=== PATIENT | female | born 1955 | race Caucasian/White ===

== ENCOUNTER 2017-05-13 10:13 | Emergency (ER) | payer MEDICARE, MEDICAID ==
[~2017-05-13] VITALS: Ht 152.4 cm; Wt 55.0 kg
[~2017-05-13 10:13] MED LIST: ALBU8.5H8 INH; ASPI-515 PO; ATARAX PO; BENZ0.5T PO; CLON-364 PO; CLON0.5T20 PO; DIPH25CA61 PO; FLUO20CA8 PO; HALO10TA PO; HYDR-3241 PO; LISI5TAB7 PO; METROPOLOL; OMEP-110 PO; POLY454P4 PO; PRAV20TA2 PO; TRAZ100T15 PO; ZIPR80CA3 PO
[2017-05-13 10:18] VITALS: BP 114/75
[2017-05-13 11:29] LABS: BASOPHILS # (AUTO) 0.02 x10^3/uL (0-0.1); BASOPHILS % (AUTO) 0 % (0-1); EOSINOPHILS # (AUTO) 0.03 x10^3/uL (0-0.4); EOSINOPHILS % (AUTO) 0 % (1-7); LYMPHOCYTES # (AUTO) 1.18 x10^3/uL (1-3.4); LYMPHOCYTES % (AUTO) 11 % (22-44); MD NO; MEAN CORPUSCULAR HEMOGLOBIN 29.5 pg (27.0-34.8); MEAN CORPUSCULAR HGB CONC 32.6 g/dL (32.4-35.8); MEAN CORPUSCULAR VOLUME 90.5 fL (80-100); MEAN PLATELET VOLUME 6.2 fL (7.4-10.4); MONOCYTES # (AUTO) 0.68 x10^3/uL (0.2-0.8); MONOCYTES % (AUTO) 6 % (2-9); NEUTROPHILS # (AUTO) 9.09 x10^3/uL (1.8-6.8); NEUTROPHILS % (AUTO) 83 % (42-75); PLATELET COUNT 303 x10^3/uL (130-400); RED BLOOD COUNT 3.86 x10^6/uL (3.82-5.3); RED CELL DISTRIBUTION WIDTH 17.9 % (9.6-15.2)
[2017-05-13 11:36] LABS: INTERNATIONAL NORMALIZED RATIO 1.06 (0.93-1.1)
[2017-05-13 11:41] LABS: ALANINE AMINOTRANSFERASE 34 U/L (12-78); ALBUMIN 1.8 g/dL (3.4-5.0); ANION GAP 9 mmol/L (5-15); CALCIUM 7.4 mg/dL (8.5-10.1); CHLORIDE 105 mmol/L (98-107); CREATININE 0.73 mg/dL (0.55-1.02)
[2017-05-13 11:43] LABS: ALKALINE PHOSPHATASE 147 U/L (45-117); BILIRUBIN,TOTAL 0.5 mg/dL (0.2-1.0); TOTAL PROTEIN 4.6 g/dL (6.4-8.2)
== END 2017-05-13 14:03 | disposition home or self-care (01) ==
LOC: ED 11:27
DX: R55 Syncope and collapse (principal)
CPT/HCPCS: 36415; 70450; 71045; 80053; 85025; 85610; 85730; 93005; 99285

== ENCOUNTER 2017-05-16 08:11 | Inpatient (IN) | payer MEDICARE, MEDICAID ==
[~2017-05-16] VITALS: Ht 152.4 cm; Wt 61.7 kg
[2017-05-16 08:54] LABS: BASOPHILS # (AUTO) 0.08 x10^3/uL (0-0.1); BASOPHILS % (AUTO) 1 % (0-1); EOSINOPHILS # (AUTO) 0.08 x10^3/uL (0-0.4); EOSINOPHILS % (AUTO) 1 % (1-7); LYMPHOCYTES # (AUTO) 1.34 x10^3/uL (1-3.4); LYMPHOCYTES % (AUTO) 13 % (22-44); MD NO; MEAN CORPUSCULAR HEMOGLOBIN 29.7 pg (27.0-34.8); MEAN CORPUSCULAR HGB CONC 33.2 g/dL (32.4-35.8); MEAN CORPUSCULAR VOLUME 89.5 fL (80-100); MEAN PLATELET VOLUME 6.4 fL (7.4-10.4); MONOCYTES # (AUTO) 0.68 x10^3/uL (0.2-0.8); MONOCYTES % (AUTO) 7 % (2-9); NEUTROPHILS # (AUTO) 8.38 x10^3/uL (1.8-6.8); NEUTROPHILS % (AUTO) 79 % (42-75); PLATELET COUNT 273 x10^3/uL (130-400); RED BLOOD COUNT 3.98 x10^6/uL (3.82-5.3); RED CELL DISTRIBUTION WIDTH 18.5 % (9.6-15.2)
[2017-05-16 09:03] LABS: ALANINE AMINOTRANSFERASE 38 U/L (12-78); ALBUMIN 1.9 g/dL (3.4-5.0); ANION GAP 7 mmol/L (5-15); CALCIUM 7.5 mg/dL (8.5-10.1); CHLORIDE 107 mmol/L (98-107); CREATININE 0.55 mg/dL (0.55-1.02)
[2017-05-16 09:08] LABS: ALKALINE PHOSPHATASE 154 U/L (45-117); BILIRUBIN,TOTAL 0.8 mg/dL (0.2-1.0); TOTAL PROTEIN 4.8 g/dL (6.4-8.2); TROPONIN I < 0.015 ng/mL (0.000-0.045)
[2017-05-16] MEDS ORDERED: SODIUM CHLORIDE 0.9% 1,000ML IVBOLUS ONE (10:00)
[2017-05-16] MEDS ORDERED: LACT10SO28 PO (10:13)
[2017-05-16] MEDS ORDERED: POLY17PO5 PO (10:13)
[2017-05-16] MEDS ORDERED: LOSA50TA6 PO (10:13)
[2017-05-16] MEDS ORDERED: DOCU-131 PO (10:13)
[2017-05-16] MEDS ORDERED: LEVO50TA5 PO (10:13)
[2017-05-16] MEDS ORDERED: MELO15TA24 PO (10:13)
[2017-05-16] MEDS ORDERED: ASPI-496 PO (10:13)
[2017-05-16] MEDS ORDERED: FERR324T5 PO (10:13)
[2017-05-16] MEDS ORDERED: HYDR25CA PO (10:13)
[2017-05-16 11:21] LABS: MICROSCOPIC AUTO
[2017-05-16 11:23] LABS: CULTURE INDICATED? YES
[2017-05-16] MEDS ORDERED: CEFTRIAXONE PMX 1GM/50ML 50 ML ONE (11:51)
[2017-05-16] MEDS ORDERED: ACETAMINOPHEN 500 MG TABLET PO ONE (12:00)
[2017-05-16] MEDS ORDERED: CEFTRIAXONE PMX 1GM/50ML 50 ML IV ONE (12:00)
[2017-05-16 12:15] VITALS: BP 131/54
[2017-05-16] MEDS ORDERED: hydrALAzine 20 MG/ML, 1ML IVPush PRN (13:00)
[2017-05-16] MEDS ORDERED: ONDANSETRON 2MG/ML, 2ML IVPush PRN (13:00)
[2017-05-16] MEDS ORDERED: DOCUSATE 100 MG CAPSULE PO PRN (13:00)
[2017-05-16] MEDS ORDERED: ACETAMINOPHEN 325 MG TABLET PO PRN (13:00)
[2017-05-16] MEDS: ALBUTEROL SULFATE 2.5 MG/3 ML NPPB SCH ×3 (13:00→21:00)
[2017-05-16] MEDS ORDERED: TRAZODONE 50MG TABLET PO SCH (13:00)
[2017-05-16] MEDS: FERROUS GLUCONATE 324 MG TABLET PO SCH (13:14)
[2017-05-16] MEDS: OMEPRAZOLE 20 MG CAPSULE.DR PO SCH (13:14)
[2017-05-16] MEDS: SODIUM CHLORIDE 0.9% 1,000 ML IV SCH ×2 (13:14→23:25)
[2017-05-16] MEDS: DOCUSATE 100 MG CAPSULE PO SCH (13:14)
[2017-05-16] MEDS: LEVOTHYROXINE 50 MCG TABLET PO SCH (13:14)
[2017-05-16] MEDS: ASPIRIN 81 MG TABLET EC PO SCH (13:14)
[2017-05-16] MEDS: ENOXAPARIN 40 MG/0.4 ML SQ SCH (13:41)
[2017-05-16 14:00] VITALS: BP 134/64
[2017-05-16 14:01] VITALS: BP 130/67
[2017-05-16 14:03] VITALS: BP 126/49
[2017-05-16 14:48] LABS: TROPONIN I < 0.015 ng/mL (0.000-0.045)
[2017-05-16 15:09] LABS: AMPHETAMINE SCREEN, URINE Negative (Negative); BARBITURATE SCREEN, URINE Negative (Negative); BENZODIAZEPINE SCREEN, URINE Negative (Negative); CANNABINOID SCREEN, URINE Negative (Negative); COCAINE SCREEN, URINE Negative (Negative); METHADONE SCREEN, URINE Negative (Negative); OPIATE SCREEN, URINE Positive (Negative)
[2017-05-16] MEDS: OXYcodone IR 5MG TABLET PO PRN ×2 (17:56→22:14)
[2017-05-16 20:59] VITALS: BP 128/65
[2017-05-16] MEDS: ZIPRASIDONE 20MG CAPSULE PO SCH (21:09)
[2017-05-16 21:37] LABS: TROPONIN I < 0.015 ng/mL (0.000-0.045)
[2017-05-17 00:46] VITALS: BP 138/63
[2017-05-17] MEDS: ALBUTEROL SULFATE 2.5 MG/3 ML NPPB SCH ×6 (02:00→22:15)
[2017-05-17] MEDS: OXYcodone IR 5MG TABLET PO PRN ×5 (02:12→21:23)
[2017-05-17] MEDS: LEVOTHYROXINE 50 MCG TABLET PO SCH (05:32)
[2017-05-17 05:53] LABS: CHLORIDE 109 mmol/L (98-107)
[2017-05-17 05:58] LABS: BASOPHILS # (AUTO) 0.16 x10^3/uL (0-0.1); BASOPHILS % (AUTO) 2 % (0-1); EOSINOPHILS # (AUTO) 0.18 x10^3/uL (0-0.4); EOSINOPHILS % (AUTO) 2 % (1-7); LYMPHOCYTES % (AUTO) 30 % (22-44); MD NO; MEAN CORPUSCULAR HEMOGLOBIN 29.9 pg (27.0-34.8); MEAN CORPUSCULAR VOLUME 90.7 fL (80-100); MEAN PLATELET VOLUME 6.4 fL (7.4-10.4); MONOCYTES # (AUTO) 0.93 x10^3/uL (0.2-0.8); MONOCYTES % (AUTO) 12 % (2-9); NEUTROPHILS # (AUTO) 4.09 x10^3/uL (1.8-6.8); NEUTROPHILS % (AUTO) 54 % (42-75); PLATELET COUNT 250 x10^3/uL (130-400); RED BLOOD COUNT 3.79 x10^6/uL (3.82-5.3); RED CELL DISTRIBUTION WIDTH 18.7 % (9.6-15.2)
[2017-05-17 06:04] LABS: ANION GAP 9 mmol/L (5-15); CALCIUM 7.5 mg/dL (8.5-10.1); CREATININE 0.49 mg/dL (0.55-1.02)
[2017-05-17 07:10] VITALS: BP 140/59
[2017-05-17 08:30] VITALS: BP 129/60
[2017-05-17] MEDS: ASPIRIN 81 MG TABLET EC PO SCH (09:36)
[2017-05-17] MEDS: ZIPRASIDONE 20MG CAPSULE PO SCH ×2 (09:36→22:47)
[2017-05-17] MEDS: FERROUS GLUCONATE 324 MG TABLET PO SCH (09:36)
[2017-05-17] MEDS: DOCUSATE 100 MG CAPSULE PO SCH (09:36)
[2017-05-17] MEDS: CEFTRIAXONE PMX 1GM/50ML 50 ML IV SCH (09:37)
[2017-05-17] MEDS: OMEPRAZOLE 20 MG CAPSULE.DR PO SCH (09:38)
[2017-05-17] MEDS: SODIUM CHLORIDE 0.9% 1,000 ML IV SCH ×2 (11:35→21:32)
[2017-05-17] MEDS: ENOXAPARIN 40 MG/0.4 ML SQ SCH (13:34)
[2017-05-17 14:30] VITALS: BP 145/78
[2017-05-17 18:43] VITALS: BP 123/76
[2017-05-17] MEDS: TRAZODONE 50MG TABLET PO SCH (22:44)
[2017-05-18 01:31] VITALS: BP_SYST 160; BP_SYST 171; BP_DIAS 71; BP_DIAS 91
[2017-05-18] MEDS: OXYcodone IR 5MG TABLET PO PRN ×4 (02:27→21:49)
[2017-05-18] MEDS: ALBUTEROL SULFATE 2.5 MG/3 ML NPPB SCH ×4 (03:00→19:54)
[2017-05-18 04:31] LABS: BASOPHILS # (AUTO) 0.02 x10^3/uL (0-0.1); BASOPHILS % (AUTO) 0 % (0-1); EOSINOPHILS # (AUTO) 0.02 x10^3/uL (0-0.4); EOSINOPHILS % (AUTO) 0 % (1-7); LYMPHOCYTES # (AUTO) 1.07 x10^3/uL (1-3.4); LYMPHOCYTES % (AUTO) 14 % (22-44); MD NO; MEAN CORPUSCULAR HEMOGLOBIN 29.8 pg (27.0-34.8); MEAN CORPUSCULAR VOLUME 90.3 fL (80-100); MEAN PLATELET VOLUME 6.4 fL (7.4-10.4); MONOCYTES % (AUTO) 8 % (2-9); NEUTROPHILS # (AUTO) 6.14 x10^3/uL (1.8-6.8); NEUTROPHILS % (AUTO) 78 % (42-75); PLATELET COUNT 238 x10^3/uL (130-400); RED BLOOD COUNT 3.58 x10^6/uL (3.82-5.3)
[2017-05-18 04:41] LABS: ANION GAP 8 mmol/L (5-15); CALCIUM 7.3 mg/dL (8.5-10.1); CHLORIDE 109 mmol/L (98-107)
[2017-05-18 04:44] LABS: CREATINE KINASE, TOTAL 42 U/L (26-192); CREATININE 0.38 mg/dL (0.55-1.02)
[2017-05-18] MEDS: LEVOTHYROXINE 50 MCG TABLET PO SCH (05:52)
[2017-05-18 07:24] VITALS: BP 135/68
[2017-05-18] MEDS: ZIPRASIDONE 20MG CAPSULE PO SCH ×3 (08:47→21:49)
[2017-05-18] MEDS: SODIUM CHLORIDE 0.9% 1,000 ML IV SCH (08:47)
[2017-05-18] MEDS: FERROUS GLUCONATE 324 MG TABLET PO SCH (08:47)
[2017-05-18] MEDS: OMEPRAZOLE 20 MG CAPSULE.DR PO SCH (08:47)
[2017-05-18] MEDS: CEFTRIAXONE PMX 1GM/50ML 50 ML IV SCH (08:47)
[2017-05-18] MEDS: ASPIRIN 81 MG TABLET EC PO SCH (08:48)
[2017-05-18] MEDS: DOCUSATE 100 MG CAPSULE PO SCH (08:48)
[2017-05-18] MEDS ORDERED: MAGNESIUM SULFATE PMX 2GM/50ML 50 ML IV ONE (10:00)
[2017-05-18] MEDS: ENOXAPARIN 40 MG/0.4 ML SQ SCH (13:13)
[2017-05-18] MEDS ORDERED: ALBUTEROL SULFATE 2.5 MG/3 ML ONE (13:44)
[2017-05-18 14:30] VITALS: BP 103/58
[2017-05-18] MEDS ORDERED: MAGNESIUM CITRATE 300ML ORAL SOL PO ONE (15:00)
[2017-05-18] MEDS ORDERED: MAGNESIUM CITRATE 300ML ORAL SOL PO PRN (16:30)
[2017-05-18] MEDS: POLYETHYLENE GLYCOL 17 GM PACKET PO PRN ×2 (17:07→21:49)
[2017-05-18 20:58] VITALS: BP 148/84
[2017-05-18] MEDS: TRAZODONE 50MG TABLET PO SCH (21:49)
[2017-05-19] MEDS: OXYcodone IR 5MG TABLET PO PRN ×5 (03:46→23:04)
[2017-05-19 03:48] VITALS: BP 134/77
[2017-05-19 04:52] LABS: BASOPHILS # (AUTO) 0.04 x10^3/uL (0-0.1); BASOPHILS % (AUTO) 1 % (0-1); EOSINOPHILS # (AUTO) 0.12 x10^3/uL (0-0.4); EOSINOPHILS % (AUTO) 2 % (1-7); LYMPHOCYTES # (AUTO) 1.65 x10^3/uL (1-3.4); LYMPHOCYTES % (AUTO) 25 % (22-44); MD NO; MEAN CORPUSCULAR HGB CONC 32.9 g/dL (32.4-35.8); MEAN PLATELET VOLUME 6.2 fL (7.4-10.4); MONOCYTES # (AUTO) 0.81 x10^3/uL (0.2-0.8); MONOCYTES % (AUTO) 12 % (2-9); NEUTROPHILS # (AUTO) 3.88 x10^3/uL (1.8-6.8); NEUTROPHILS % (AUTO) 60 % (42-75); PLATELET COUNT 226 x10^3/uL (130-400); RED BLOOD COUNT 3.19 x10^6/uL (3.82-5.3); RED CELL DISTRIBUTION WIDTH 18.7 % (9.6-15.2)
[2017-05-19 05:00] LABS: ALBUMIN 1.5 g/dL (3.4-5.0); ANION GAP 8 mmol/L (5-15); CALCIUM 7.2 mg/dL (8.5-10.1); CHLORIDE 109 mmol/L (98-107)
[2017-05-19 05:04] LABS: CREATININE 0.31 mg/dL (0.55-1.02); FREE T4 (FREE THYROXINE) 0.88 ng/dL (0.76-1.46)
[2017-05-19] MEDS: LEVOTHYROXINE 50 MCG TABLET PO SCH (05:27)
[2017-05-19 07:19] VITALS: BP 113/70
[2017-05-19] MEDS: SODIUM CHLORIDE 0.9% 1,000 ML IV SCH (08:07)
[2017-05-19] MEDS: FERROUS GLUCONATE 324 MG TABLET PO SCH (09:44)
[2017-05-19] MEDS: CEFTRIAXONE PMX 1GM/50ML 50 ML IV SCH (09:44)
[2017-05-19] MEDS: ASPIRIN 81 MG TABLET EC PO SCH (09:44)
[2017-05-19] MEDS: OMEPRAZOLE 20 MG CAPSULE.DR PO SCH (09:44)
[2017-05-19] MEDS: ZIPRASIDONE 20MG CAPSULE PO SCH ×2 (09:44→21:48)
[2017-05-19] MEDS: DOCUSATE 100 MG CAPSULE PO SCH (09:44)
[2017-05-19] MEDS: ALBUTEROL SULFATE 2.5 MG/3 ML NPPB SCH (10:23)
[2017-05-19] MEDS: ENOXAPARIN 40 MG/0.4 ML SQ SCH (12:20)
[2017-05-19 13:13] VITALS: BP 110/63
[2017-05-19] MEDS: DIPHENHYDRAMINE 25 MG CAPSULE PO PRN ×2 (14:55→21:47)
[2017-05-19] MEDS ORDERED: MAGNESIUM SULFATE PMX 2GM/50ML 50 ML IV ONE (16:00)
[2017-05-19] MEDS ORDERED: LIDOCAINE GEL 2%, 5ML TP ONE (16:00)
[2017-05-19 19:11] VITALS: BP 129/70
[2017-05-19] MEDS ORDERED: maalox/diphenh/lido/sucralfate 5 ML PO PRN (20:30)
[2017-05-19] MEDS: TRAZODONE 50MG TABLET PO SCH (22:06)
[2017-05-20] MEDS: SODIUM CHLORIDE 0.9% 1,000 ML IV SCH
[2017-05-20 01:18] VITALS: BP 128/68
[2017-05-20] MEDS: OXYcodone IR 5MG TABLET PO PRN ×3 (04:29→13:55)
[2017-05-20] MEDS: LEVOTHYROXINE 50 MCG TABLET PO SCH (05:29)
[2017-05-20] MEDS: DIPHENHYDRAMINE 25 MG CAPSULE PO PRN (06:24)
[2017-05-20 07:36] VITALS: BP 114/58
[2017-05-20] MEDS ORDERED: ZIPR20CA2 PO (07:56)
[2017-05-20 08:12] LABS: BASOPHILS # (AUTO) 0.04 x10^3/uL (0-0.1); BASOPHILS % (AUTO) 1 % (0-1); EOSINOPHILS # (AUTO) 0.13 x10^3/uL (0-0.4); EOSINOPHILS % (AUTO) 2 % (1-7); LYMPHOCYTES # (AUTO) 1.38 x10^3/uL (1-3.4); LYMPHOCYTES % (AUTO) 20 % (22-44); MD NO; MEAN CORPUSCULAR HEMOGLOBIN 30.2 pg (27.0-34.8); MEAN CORPUSCULAR HGB CONC 33.1 g/dL (32.4-35.8); MEAN CORPUSCULAR VOLUME 91.1 fL (80-100); MEAN PLATELET VOLUME 6.2 fL (7.4-10.4); MONOCYTES # (AUTO) 0.72 x10^3/uL (0.2-0.8); MONOCYTES % (AUTO) 10 % (2-9); NEUTROPHILS # (AUTO) 4.67 x10^3/uL (1.8-6.8); NEUTROPHILS % (AUTO) 67 % (42-75); PLATELET COUNT 245 x10^3/uL (130-400); RED BLOOD COUNT 3.25 x10^6/uL (3.82-5.3); RED CELL DISTRIBUTION WIDTH 19.4 % (9.6-15.2)
[2017-05-20 08:26] LABS: ALBUMIN 1.5 g/dL (3.4-5.0); ANION GAP 6 mmol/L (5-15); CALCIUM 7.2 mg/dL (8.5-10.1); CHLORIDE 106 mmol/L (98-107)
[2017-05-20 08:28] LABS: CREATININE 0.43 mg/dL (0.55-1.02)
[2017-05-20] MEDS: DOCUSATE 100 MG CAPSULE PO SCH (09:00)
[2017-05-20] MEDS ORDERED: ALBUTEROL SULFATE 2.5 MG/3 ML NPPB PRN (09:00)
[2017-05-20] MEDS ORDERED: OMNIPAQUE 350 MG/ML, 100ML BOTTLE ONE (09:54)
[2017-05-20] MEDS: ZIPRASIDONE 20MG CAPSULE PO SCH (09:55)
[2017-05-20] MEDS: FERROUS GLUCONATE 324 MG TABLET PO SCH (09:55)
[2017-05-20] MEDS: CEFTRIAXONE PMX 1GM/50ML 50 ML IV SCH (09:55)
[2017-05-20] MEDS: ASPIRIN 81 MG TABLET EC PO SCH (09:55)
[2017-05-20] MEDS: OMEPRAZOLE 20 MG CAPSULE.DR PO SCH (09:55)
[2017-05-20] MEDS ORDERED: DIPHENHYDRAMINE 25 MG CAPSULE PO PRN (12:30)
[2017-05-20 12:54] VITALS: BP 132/70
[2017-05-20] MEDS: ENOXAPARIN 40 MG/0.4 ML SQ SCH (13:00)
[2017-05-20] MEDS ORDERED: HYDR-3241 PO (13:43)
== END 2017-05-20 14:41 | DRG 73 ==
LOC: ED 08:24 → EDIP 11:11 → 4WST 12:08
PROVIDERS: ADMIT Internal Medicine; ATTEND Internal Medicine
DX: G90.8 Other disorders of autonomic nervous system (principal); E43 Unspecified severe protein-calorie malnutrition; E77.8 Other disorders of glycoprotein metabolism; F25.9 Schizoaffective disorder, unspecified; D64.9 Anemia, unspecified; E11.9 Type 2 diabetes mellitus without complications; R55 Syncope and collapse; W19.XXXA Unspecified fall, initial encounter; M54.5 Low back pain; N30.91 Cystitis, unspecified with hematuria; E03.9 Hypothyroidism, unspecified; G89.4 Chronic pain syndrome; F45.8 Other somatoform disorders; I95.1 Orthostatic hypotension; J45.909 Unspecified asthma, uncomplicated; K21.9 Gastro-esophageal reflux disease without esophagitis; Z87.891 Personal history of nicotine dependence; Z90.49 Acquired absence of other specified parts of digestive tract; Z95.0 Presence of cardiac pacemaker; Z98.51 Tubal ligation status; Z68.26 Body mass index [BMI] 26.0-26.9, adult; Y93.89 Activity, other specified; Y92.89 Other specified places as the place of occurrence of the external cause; Y99.8 Other external cause status
CPT/HCPCS: 36415; 70450; 71045; 71275; 80048; 80053; 80307; 81001; 82040; 82550; 83735; 84100; 84439; 84443; 84484; 85025; 85379; 87077; 87086; 87186; 93005; 93306; 94640; 99285; J0696; J1650; J2405; J7613; Q9967; J3475; J7030; Q0163

== ENCOUNTER 2017-12-02 17:20 | Inpatient (IN) | payer MEDICARE, MEDICAID ==
[~2017-12-02] VITALS: Ht 152.4 cm; Wt 57.8 kg
[~2017-12-02 17:20] MED LIST changes: +ASPI-496 PO; -BENZ0.5T PO; +BENZ0.5T35 PO; -CLON-364 PO; +CLON0.5T11 PO; +DEXAMETHASONE 4 MG/ML, 1ML ONE; +DOCU-131 PO; +FERR324T5 PO; +GLYCOPYRROLATE 0.2MG/1ML, 5ML ONE; +HYDR25CA PO; +LABETALOL 5MG/ML, 20ML ONE; +LACT10SO28 PO; +LEVO50TA5 PO; +LOSA50TA6 PO; +MELO15TA24 PO; +NEOSTIGMINE 1 MG/ML, 10ML ONE; +ONDANSETRON 2MG/ML, 2ML ONE; +POLY17PO5 PO; +PROPOFOL 10 MG/ML, 20ML ONE; +ROCURONIUM 10MG/ML,5ML ONE; +SUCCINYLCHOLINE 20 MG/ML, 10ML ONE; +TRAZ-137 PO; -TRAZ100T15 PO; +ZIPR20CA2 PO
[2017-12-02] MEDS ORDERED: METOCLOPRAMIDE 5 MG/ML, 2ML IVPush ONE (18:00)
[2017-12-02] MEDS ORDERED: MAALOX/HYOSCYAMINE/LIDOCAINE 45 ML BTL PO ONE (18:00)
[2017-12-02 18:05] LABS: MEAN CORPUSCULAR HGB CONC 33.3 g/dL (32.4-35.8); MEAN CORPUSCULAR VOLUME 93.1 fL (80-100); MEAN PLATELET VOLUME 6.4 fL (7.4-10.4); PLATELET COUNT 276 x10^3/uL (130-400); RED BLOOD COUNT 5.15 x10^6/uL (3.82-5.3); RED CELL DISTRIBUTION WIDTH 12.6 % (9.6-15.2)
[2017-12-02] MEDS ORDERED: METOCLOPRAMIDE 5 MG/ML, 2ML ONE (18:16)
[2017-12-02] MEDS ORDERED: MAALOX/HYOSCYAMINE/LIDOCAINE 45 ML BTL ONE (18:16)
[2017-12-02 18:17] LABS: ALANINE AMINOTRANSFERASE 19 U/L (12-78); ALBUMIN 3.8 g/dL (3.4-5.0); ANION GAP 7 mmol/L (5-15); CALCIUM 8.6 mg/dL (8.5-10.1); CHLORIDE 107 mmol/L (98-107); CREATININE 0.64 mg/dL (0.55-1.02)
[2017-12-02 18:19] LABS: ALKALINE PHOSPHATASE 136 U/L (45-117); BILIRUBIN,TOTAL 0.2 mg/dL (0.2-1.0)
[2017-12-02 18:20] LABS: MD YES
[2017-12-02 18:24] LABS: <PLATELET ESTIMATE> ADEQUATE; <PLT MORPHOLOGY> NORMAL PLT MORPH; <RBC MORPHOLOGY> NORMAL; BAND#(MANUAL) 0.78 x10^3/uL; BANDS%(MANUAL) 4 % (0-7); LYMPH#(MANUAL) 0.78 x10^3/uL (1-3.4); LYMPHS% (MANUAL) 4 % (22-44); MONOS#(MANUAL) 1.56 x10^3/uL (0.3-2.7); MONOS% (MANUAL) 8 % (2-9); SEG#(MANUAL) 16.38 x10^3/uL (1.8-6.8); SEGS% (MANUAL) 84 % (42-75)
[2017-12-02 18:38] LABS: MICROSCOPIC NOT IND
[2017-12-02 18:39] LABS: CULTURE INDICATED? NO
[2017-12-02 19:24] LABS: TROPONIN I < 0.015 ng/mL (0.000-0.045)
[2017-12-02] MEDS ORDERED: MORPHINE SULFATE 4 MG/ML, 1ML ONE (19:54)
[2017-12-02] MEDS ORDERED: MORPHINE SULFATE 4 MG/ML, 1ML IVPush ONE (20:00)
[2017-12-02] MEDS ORDERED: OMNIPAQUE 350 MG/ML, 100ML BOTTLE ONE (20:54)
[2017-12-02] MEDS ORDERED: METH500T7 PO (21:30)
[2017-12-02] MEDS ORDERED: GABA300C10 PO (21:30)
[2017-12-02] MEDS ORDERED: BUSP10TA PO (21:30)
[2017-12-02] MEDS ORDERED: HYDR50TA13 PO (21:30)
[2017-12-02] MEDS ORDERED: AMLO5TAB2 PO (21:30)
[2017-12-02] MEDS ORDERED: ONDA4TAB7 PO (21:30)
[2017-12-02] MEDS ORDERED: MELO15TA24 PO (21:30)
[2017-12-02] MEDS ORDERED: PIPERACILLIN/TAZO/PMX 3.375GM 50 ML ONE (22:16)
[2017-12-02] MEDS ORDERED: ONDANSETRON ODT 4 MG PO PRN (22:30)
[2017-12-02] MEDS ORDERED: morphine SULFATE 10 MG/ML, 1ML IVPush PRN (22:30)
[2017-12-02] MEDS ORDERED: PIPERACILLIN/TAZO/PMX 3.375GM 50 ML IV ONE (22:30)
[2017-12-02] MEDS ORDERED: PIPERACILLIN/TAZO/PMX 3.375GM 50 ML IV SCH (22:30)
[2017-12-02] MEDS ORDERED: PROMETHAZINE 25 MG/ML, 1ML IM PRN (22:30)
[2017-12-02] MEDS ORDERED: ONDANSETRON 2MG/ML, 2ML IVPush PRN (22:30)
[2017-12-02] MEDS ORDERED: TEMPLATE NON-FORMULARY MED. (Albuterol Sulfate (Proair Hfa) 90 MCG) INH SCH (22:30)
[2017-12-02] MEDS ORDERED: BISACODYL 10 MG SUPP PR PRN (22:30)
[2017-12-02] MEDS ORDERED: FENTANYL PF 250 MCG/5ML ONE ×2 (22:47→23:22)
[2017-12-02] MEDS ORDERED: MIDAZOLAM 1 MG/ML, 2ML ONE (22:47)
[2017-12-02] MEDS ORDERED: OXYcodone 5 MG/5 ML ORAL.SOL UDC PO PRN (23:00)
[2017-12-02] MEDS ORDERED: hydrALAzine 20 MG/ML, 1ML IV PRN (23:00)
[2017-12-02] MEDS ORDERED: PROMETHAZINE 25 MG/ML, 1ML IV PRN (23:00)
[2017-12-02] MEDS ORDERED: MORPHINE SULFATE 4 MG/ML, 1ML IVPush PRN (23:00)
[2017-12-02] MEDS ORDERED: ONDANSETRON ODT 8 MG PO PRN (23:00)
[2017-12-02] MEDS ORDERED: MEPERIDINE/PF 25MG/0.5ML IVPush PRN (23:00)
[2017-12-02] MEDS ORDERED: ONDANSETRON 2MG/ML, 2ML IV PRN (23:00)
[2017-12-02] MEDS ORDERED: ACETAMINOPHEN 325 MG TABLET PO PRN (23:00)
[2017-12-02] MEDS ORDERED: PROMETHAZINE 12.5 MG SUPP PR PRN (23:00)
[2017-12-03] MEDS ORDERED: OXYcodone 5 MG/5 ML ORAL.SOL UDC ONE (00:15)
[2017-12-03] MEDS ORDERED: FENTANYL PF 100 MCG/2ML ONE (00:15)
[2017-12-03] MEDS ORDERED: ONDANSETRON 2MG/ML, 2ML ONE (00:15)
[2017-12-03] MEDS ORDERED: HYDROmorphone 2 MG/ML, 1ML ONE (00:16)
[2017-12-03] MEDS ORDERED: ONDANSETRON 2MG/ML, 2ML IVPush PRN (00:30)
[2017-12-03] MEDS ORDERED: ACETAMINOPHEN 650 MG SUPP PR PRN (00:30)
[2017-12-03] MEDS ORDERED: LORazepam 2 MG/ML, 1ML IV PRN (00:30)
[2017-12-03] MEDS ORDERED: hydrALAzine 20 MG/ML, 1ML IV PRN (00:30)
[2017-12-03] MEDS: FENTANYL PF 100 MCG/2ML IV PRN ×2 (00:51→01:10)
[2017-12-03] MEDS: HYDROmorphone 1 MG/ML, 1ML IV PRN ×2 (01:00→01:27)
[2017-12-03] MEDS ORDERED: FLUCONAZOLE 400 MG/200 ML 200 ML IV SCH (01:00)
[2017-12-03] MEDS ORDERED: LABETALOL 5MG/ML, 20ML ONE (01:33)
[2017-12-03] MEDS: LABETALOL 5MG/ML, 20ML IV PRN ×2 (01:35→01:50)
[2017-12-03 02:12] VITALS: BP 165/66
[2017-12-03] MEDS: LACTATED RINGERS 1,000 ML IV SCH ×2 (02:26→04:20)
[2017-12-03] MEDS: POTASSIUM CHLORIDE 20 MEQ in D5%-0.45% NACL 1,000 ML IV SCH ×3 (02:27→23:13)
[2017-12-03] MEDS: PIPERACILLIN/TAZO/PMX 3.375GM 50 ML IV SCH ×3 (02:28→17:48)
[2017-12-03] MEDS: ENOXAPARIN 40 MG/0.4 ML SQ SCH (02:50)
[2017-12-03 03:58] VITALS: BP 144/62
[2017-12-03] MEDS: MORPHINE SULFATE 4 MG/ML, 1ML IVPush PRN ×8 (04:08→22:30)
[2017-12-03] MEDS ORDERED: ALBUTEROL SULFATE 2.5 MG/3 ML ONE (04:14)
[2017-12-03 04:37] LABS: MEAN CORPUSCULAR HEMOGLOBIN 30.5 pg (27.0-34.8); MEAN CORPUSCULAR HGB CONC 33.5 g/dL (32.4-35.8); MEAN CORPUSCULAR VOLUME 91.1 fL (80-100); MEAN PLATELET VOLUME 6.5 fL (7.4-10.4); PLATELET COUNT 261 x10^3/uL (130-400); RED BLOOD COUNT 4.86 x10^6/uL (3.82-5.3); RED CELL DISTRIBUTION WIDTH 12.7 % (9.6-15.2)
[2017-12-03 04:47] LABS: ALANINE AMINOTRANSFERASE 150 U/L (12-78); ALBUMIN 3.2 g/dL (3.4-5.0); ANION GAP 7 mmol/L (5-15); CALCIUM 8.3 mg/dL (8.5-10.1); CHLORIDE 106 mmol/L (98-107); CREATININE 0.59 mg/dL (0.55-1.02)
[2017-12-03 04:50] LABS: ALKALINE PHOSPHATASE 198 U/L (45-117); BILIRUBIN,TOTAL 0.5 mg/dL (0.2-1.0); TOTAL PROTEIN 6.8 g/dL (6.4-8.2)
[2017-12-03] MEDS ORDERED: ALBUTEROL SULFATE 2.5 MG/3 ML NPPB PRN (05:00)
[2017-12-03 05:44] LABS: MD YES
[2017-12-03 05:46] LABS: <PLATELET ESTIMATE> ADEQUATE; <PLT MORPHOLOGY> NORMAL PLT MORPH; <RBC MORPHOLOGY> NORMAL; LYMPH#(MANUAL) 0.51 x10^3/uL (1-3.4); LYMPHS% (MANUAL) 2 % (22-44); SEG#(MANUAL) 24.99 x10^3/uL (1.8-6.8); SEGS% (MANUAL) 98 % (42-75)
[2017-12-03] MEDS ORDERED: MAGNESIUM SULFATE PMX 2GM/50ML 50 ML IV ONE (08:00)
[2017-12-03] MEDS: PANTOPRAZOLE 40 MG IV IVPush SCH (08:00)
[2017-12-03] MEDS: MICAFUNGIN 100 MG in SODIUM CHLORIDE 0.9% 100 ML IV SCH (10:53)
[2017-12-03 14:00] VITALS: BP 130/54
[2017-12-03 17:54] VITALS: BP 148/78
[2017-12-03 19:37] VITALS: BP 145/82
[2017-12-04 01:02] VITALS: BP 158/82
[2017-12-04] MEDS: PIPERACILLIN/TAZO/PMX 3.375GM 50 ML IV SCH ×3 (01:31→17:44)
[2017-12-04] MEDS: ENOXAPARIN 40 MG/0.4 ML SQ SCH (01:31)
[2017-12-04] MEDS: MORPHINE SULFATE 4 MG/ML, 1ML IVPush PRN ×8 (01:31→22:30)
[2017-12-04 05:45] LABS: BASOPHILS # (AUTO) 0.02 x10^3/uL (0-0.1); BASOPHILS % (AUTO) 0 % (0-1); EOSINOPHILS % (AUTO) 0 % (1-7); LYMPHOCYTES # (AUTO) 1.13 x10^3/uL (1-3.4); LYMPHOCYTES % (AUTO) 7 % (22-44); MD NO; MEAN CORPUSCULAR HEMOGLOBIN 30.7 pg (27.0-34.8); MEAN CORPUSCULAR HGB CONC 33.6 g/dL (32.4-35.8); MEAN CORPUSCULAR VOLUME 91.3 fL (80-100); MEAN PLATELET VOLUME 6.5 fL (7.4-10.4); MONOCYTES # (AUTO) 1.31 x10^3/uL (0.2-0.8); MONOCYTES % (AUTO) 8 % (2-9); NEUTROPHILS # (AUTO) 14.89 x10^3/uL (1.8-6.8); NEUTROPHILS % (AUTO) 86 % (42-75); PLATELET COUNT 248 x10^3/uL (130-400); RED BLOOD COUNT 4.72 x10^6/uL (3.82-5.3); RED CELL DISTRIBUTION WIDTH 12.7 % (9.6-15.2)
[2017-12-04 05:47] LABS: ALBUMIN 3.1 g/dL (3.4-5.0); ANION GAP 8 mmol/L (5-15); CALCIUM 8.6 mg/dL (8.5-10.1); CHLORIDE 106 mmol/L (98-107)
[2017-12-04 05:48] LABS: CREATININE 0.59 mg/dL (0.55-1.02)
[2017-12-04 06:38] VITALS: BP 158/82
[2017-12-04] MEDS: PANTOPRAZOLE 40 MG IV IVPush SCH (07:47)
[2017-12-04] MEDS: POTASSIUM CHLORIDE 20 MEQ in D5%-0.45% NACL 1,000 ML IV SCH ×3 (08:39→23:04)
[2017-12-04] MEDS: MICAFUNGIN 100 MG in SODIUM CHLORIDE 0.9% 100 ML IV SCH (09:20)
[2017-12-04 15:04] VITALS: BP 151/81
[2017-12-04 19:46] VITALS: BP 157/78
[2017-12-05] MEDS: MORPHINE SULFATE 4 MG/ML, 1ML IVPush PRN ×8 (01:29→23:05)
[2017-12-05 01:30] VITALS: BP 172/78
[2017-12-05] MEDS: PIPERACILLIN/TAZO/PMX 3.375GM 50 ML IV SCH ×3 (02:36→17:49)
[2017-12-05] MEDS: ENOXAPARIN 40 MG/0.4 ML SQ SCH (02:36)
[2017-12-05 05:55] LABS: ANION GAP 7 mmol/L (5-15); BASOPHILS # (AUTO) 0.02 x10^3/uL (0-0.1); BASOPHILS % (AUTO) 0 % (0-1); CALCIUM 8.6 mg/dL (8.5-10.1); CHLORIDE 103 mmol/L (98-107); CREATININE 0.48 mg/dL (0.55-1.02); EOSINOPHILS # (AUTO) 0.07 x10^3/uL (0-0.4); EOSINOPHILS % (AUTO) 1 % (1-7); LYMPHOCYTES # (AUTO) 0.67 x10^3/uL (1-3.4); LYMPHOCYTES % (AUTO) 6 % (22-44); MD NO; MEAN CORPUSCULAR HEMOGLOBIN 30.6 pg (27.0-34.8); MEAN CORPUSCULAR HGB CONC 33.4 g/dL (32.4-35.8); MEAN CORPUSCULAR VOLUME 91.7 fL (80-100); MEAN PLATELET VOLUME 6.7 fL (7.4-10.4); MONOCYTES # (AUTO) 1.18 x10^3/uL (0.2-0.8); MONOCYTES % (AUTO) 10 % (2-9); NEUTROPHILS % (AUTO) 83 % (42-75); PLATELET COUNT 232 x10^3/uL (130-400); RED BLOOD COUNT 4.76 x10^6/uL (3.82-5.3); RED CELL DISTRIBUTION WIDTH 12.2 % (9.6-15.2)
[2017-12-05 07:22] VITALS: BP 156/83
[2017-12-05] MEDS: PANTOPRAZOLE 40 MG IV IVPush SCH (07:40)
[2017-12-05] MEDS: POTASSIUM CHLORIDE 20 MEQ in D5%-0.45% NACL 1,000 ML IV SCH ×2 (08:39→17:48)
[2017-12-05] MEDS: MICAFUNGIN 100 MG in SODIUM CHLORIDE 0.9% 100 ML IV SCH (08:40)
[2017-12-05 13:20] VITALS: BP 159/81
[2017-12-05 18:32] VITALS: BP 154/76
[2017-12-06 02:00] VITALS: BP 158/82
[2017-12-06] MEDS ORDERED: morphine SULFATE 10 MG/ML, 1ML ONE (02:17)
[2017-12-06] MEDS: ENOXAPARIN 40 MG/0.4 ML SQ SCH (02:19)
[2017-12-06] MEDS: PIPERACILLIN/TAZO/PMX 3.375GM 50 ML IV SCH ×3 (02:19→18:22)
[2017-12-06] MEDS: MORPHINE SULFATE 4 MG/ML, 1ML IVPush PRN ×7 (02:19→21:29)
[2017-12-06] MEDS: POTASSIUM CHLORIDE 20 MEQ in D5%-0.45% NACL 1,000 ML IV SCH ×2 (04:43→21:29)
[2017-12-06 05:39] LABS: BASOPHILS # (AUTO) 0.03 x10^3/uL (0-0.1); BASOPHILS % (AUTO) 0 % (0-1); EOSINOPHILS # (AUTO) 0.03 x10^3/uL (0-0.4); EOSINOPHILS % (AUTO) 0 % (1-7); LYMPHOCYTES # (AUTO) 0.81 x10^3/uL (1-3.4); LYMPHOCYTES % (AUTO) 8 % (22-44); MD NO; MEAN CORPUSCULAR HGB CONC 34.5 g/dL (32.4-35.8); MEAN CORPUSCULAR VOLUME 89.8 fL (80-100); MEAN PLATELET VOLUME 6.5 fL (7.4-10.4); MONOCYTES # (AUTO) 1.43 x10^3/uL (0.2-0.8); MONOCYTES % (AUTO) 15 % (2-9); NEUTROPHILS # (AUTO) 7.52 x10^3/uL (1.8-6.8); NEUTROPHILS % (AUTO) 77 % (42-75); PLATELET COUNT 227 x10^3/uL (130-400); RED BLOOD COUNT 4.85 x10^6/uL (3.82-5.3); RED CELL DISTRIBUTION WIDTH 11.8 % (9.6-15.2)
[2017-12-06 05:53] LABS: ALANINE AMINOTRANSFERASE 38 U/L (12-78); ALBUMIN 2.6 g/dL (3.4-5.0); ANION GAP 7 mmol/L (5-15); CALCIUM 8.3 mg/dL (8.5-10.1); CHLORIDE 101 mmol/L (98-107); CREATININE 0.45 mg/dL (0.55-1.02)
[2017-12-06 05:56] LABS: ALKALINE PHOSPHATASE 206 U/L (45-117); BILIRUBIN,TOTAL 0.5 mg/dL (0.2-1.0); TOTAL PROTEIN 6.8 g/dL (6.4-8.2)
[2017-12-06] MEDS: PANTOPRAZOLE 40 MG IV IVPush SCH (07:45)
[2017-12-06 07:59] VITALS: BP 152/84
[2017-12-06] MEDS: MICAFUNGIN 100 MG in SODIUM CHLORIDE 0.9% 100 ML IV SCH (08:52)
[2017-12-06 13:30] VITALS: BP 153/74
[2017-12-06] MEDS ORDERED: MAGNESIUM SULFATE PMX 2GM/50ML 50 ML IV ONE (13:30)
[2017-12-06 19:17] VITALS: BP 152/77
[2017-12-07] MEDS: MORPHINE SULFATE 4 MG/ML, 1ML IVPush PRN ×8 (00:30→21:46)
[2017-12-07 01:08] VITALS: BP 168/76
[2017-12-07] MEDS: PIPERACILLIN/TAZO/PMX 3.375GM 50 ML IV SCH ×3 (01:56→17:56)
[2017-12-07] MEDS: ENOXAPARIN 40 MG/0.4 ML SQ SCH (01:56)
[2017-12-07 05:57] LABS: ALBUMIN 2.4 g/dL (3.4-5.0); ANION GAP 7 mmol/L (5-15); CALCIUM 8.1 mg/dL (8.5-10.1); CHLORIDE 103 mmol/L (98-107)
[2017-12-07 06:00] LABS: CREATININE 0.41 mg/dL (0.55-1.02)
[2017-12-07] MEDS: POTASSIUM CHLORIDE 20 MEQ in D5%-0.45% NACL 1,000 ML IV SCH (06:27)
[2017-12-07 06:45] VITALS: BP 147/75
[2017-12-07] MEDS: PANTOPRAZOLE 40 MG IV IVPush SCH (08:20)
[2017-12-07] MEDS: MICAFUNGIN 100 MG in SODIUM CHLORIDE 0.9% 100 ML IV SCH (08:59)
[2017-12-07] MEDS ORDERED: POTASSIUM PHOSPHATE 44 MEQ in SODIUM CHLORIDE 0.9% 500 ML IV ONE (10:30)
[2017-12-07] MEDS: MAGNESIUM HYDROXIDE 8%, 30ML UDC PO SCH (11:55)
[2017-12-07 12:33] VITALS: BP 158/79
[2017-12-07 19:35] VITALS: BP 158/79
[2017-12-08] MEDS: MORPHINE SULFATE 4 MG/ML, 1ML IVPush PRN ×8 (00:48→21:29)
[2017-12-08 01:04] VITALS: BP 151/79
[2017-12-08] MEDS: PIPERACILLIN/TAZO/PMX 3.375GM 50 ML IV SCH ×3 (01:48→17:51)
[2017-12-08] MEDS: ENOXAPARIN 40 MG/0.4 ML SQ SCH (01:48)
[2017-12-08 07:04] VITALS: BP 150/82
[2017-12-08] MEDS: MAGNESIUM HYDROXIDE 8%, 30ML UDC PO SCH (09:25)
[2017-12-08] MEDS: PANTOPRAZOLE 40 MG IV IVPush SCH (09:25)
[2017-12-08] MEDS: MICAFUNGIN 100 MG in SODIUM CHLORIDE 0.9% 100 ML IV SCH (09:25)
[2017-12-08 12:13] VITALS: BP 147/79
[2017-12-08] MEDS ORDERED: POTASSIUM PHOSPHATE 22 MEQ in SODIUM CHLORIDE 0.9% 500 ML IV ONE (13:00)
[2017-12-08 18:54] VITALS: BP 164/77
[2017-12-08] MEDS: DIPHENHYDRAMINE 50 MG/ML, 1ML IV PRN (21:29)
[2017-12-09] MEDS: MORPHINE SULFATE 4 MG/ML, 1ML IVPush PRN ×6 (00:40→16:44)
[2017-12-09] MEDS: ENOXAPARIN 40 MG/0.4 ML SQ SCH (02:05)
[2017-12-09] MEDS: PIPERACILLIN/TAZO/PMX 3.375GM 50 ML IV SCH ×3 (02:05→16:46)
[2017-12-09 03:55] VITALS: BP 142/82
[2017-12-09 07:03] VITALS: BP 143/82
[2017-12-09] MEDS: PANTOPRAZOLE 40 MG IV IVPush SCH (07:34)
[2017-12-09] MEDS: MAGNESIUM HYDROXIDE 8%, 30ML UDC PO SCH (10:33)
[2017-12-09] MEDS: MICAFUNGIN 100 MG in SODIUM CHLORIDE 0.9% 100 ML IV SCH (11:06)
[2017-12-09 13:09] VITALS: BP 148/80
[2017-12-09] MEDS: DIPHENHYDRAMINE 50 MG/ML, 1ML IV PRN (13:41)
== END 2017-12-09 18:03 | DRG 853 ==
LOC: ED 19:43 → EDIP 22:11 → SUATTDRO 22:25 → CCU 12-03 02:08 → 3NE 12-03 17:26
PROVIDERS: ADMIT Hospitalist; ATTEND Hospitalist
PROC: 0WJG0ZZ Inspection of Peritoneal Cavity, Open Approach (ICD-10-PCS; principal; 2017-12-03)
PROC: 0DU907Z Supplement Duodenum with Autologous Tissue Substitute, Open Approach (ICD-10-PCS; 2017-12-03)
PROC: 3E1M38Z Irrigation of Peritoneal Cavity using Irrigating Substance, Percutaneous Approach (ICD-10-PCS; 2017-12-03)
DX: A41.9 Sepsis, unspecified organism (principal); K28.5 Chronic or unspecified gastrojejunal ulcer with perforation; K65.0 Generalized (acute) peritonitis; K86.3 Pseudocyst of pancreas; M48.54XA Collapsed vertebra, not elsewhere classified, thoracic region, initial encounter for fracture; K59.09 Other constipation; Z87.440 Personal history of urinary (tract) infections; K21.9 Gastro-esophageal reflux disease without esophagitis; E03.9 Hypothyroidism, unspecified; E11.9 Type 2 diabetes mellitus without complications; I25.10 Atherosclerotic heart disease of native coronary artery without angina pectoris; B18.2 Chronic viral hepatitis C; F10.21 Alcohol dependence, in remission; I10 Essential (primary) hypertension; F32.9 Major depressive disorder, single episode, unspecified; F25.9 Schizoaffective disorder, unspecified; G89.29 Other chronic pain; M54.9 Dorsalgia, unspecified; Z98.84 Bariatric surgery status; Z95.0 Presence of cardiac pacemaker; Z86.010 Personal history of colon polyps; Z90.49 Acquired absence of other specified parts of digestive tract; Z98.51 Tubal ligation status; Z87.891 Personal history of nicotine dependence; Z88.2 Allergy status to sulfonamides; Z90.710 Acquired absence of both cervix and uterus
CPT/HCPCS: 36415; 74022; 74177; 80048; 80053; 81003; 82040; 82962; 83605; 83690; 83735; 84100; 84484; 85025; 86677; 87081; 93005; 94640; 96374; 96375; C1729; J1100; J1170; J1450; J1650; J2248; J2250; J2405; J2543; J2704; J2710; J3010; J3480; J3490; Q9967; C9113; J0330; J1200; J2765; J3475; J7040; J7120

== ENCOUNTER 2018-01-09 10:10 | Inpatient (IN) | payer MEDICARE, MEDICAID ==
[~2018-01-09] VITALS: Ht 152.4 cm; Wt 53.3 kg
[~2018-01-09 10:10] MED LIST changes: +AMLO5TAB7 PO; +BUSP10TA PO; -DEXAMETHASONE 4 MG/ML, 1ML ONE; +GABA300C10 PO; -GLYCOPYRROLATE 0.2MG/1ML, 5ML ONE; +HYDR50TA13 PO; -LABETALOL 5MG/ML, 20ML ONE; -LOSA50TA6 PO; +LOSA50TA7 PO; +METH500T7 PO; -NEOSTIGMINE 1 MG/ML, 10ML ONE; +ONDA4TAB7 PO; -ONDANSETRON 2MG/ML, 2ML ONE; -PROPOFOL 10 MG/ML, 20ML ONE; -ROCURONIUM 10MG/ML,5ML ONE; -SUCCINYLCHOLINE 20 MG/ML, 10ML ONE
[2018-01-09] MEDS ORDERED: SODIUM CHLORIDE 0.9% 1,000 ML IV ONE (10:37)
[2018-01-09 10:56] LABS: BASOPHILS # (AUTO) 0.01 x10^3/uL (0-0.1); BASOPHILS % (AUTO) 0 % (0-1); EOSINOPHILS % (AUTO) 0 % (1-7); LYMPHOCYTES # (AUTO) 0.86 x10^3/uL (1-3.4); LYMPHOCYTES % (AUTO) 8 % (22-44); MD NO; MEAN CORPUSCULAR HEMOGLOBIN 30.6 pg (27.0-34.8); MEAN CORPUSCULAR HGB CONC 33.5 g/dL (32.4-35.8); MEAN CORPUSCULAR VOLUME 91.5 fL (80-100); MEAN PLATELET VOLUME 6.2 fL (7.4-10.4); MONOCYTES # (AUTO) 0.78 x10^3/uL (0.2-0.8); MONOCYTES % (AUTO) 7 % (2-9); NEUTROPHILS # (AUTO) 9.65 x10^3/uL (1.8-6.8); NEUTROPHILS % (AUTO) 85 % (42-75); PLATELET COUNT 344 x10^3/uL (130-400); RED BLOOD COUNT 4.83 x10^6/uL (3.82-5.3); RED CELL DISTRIBUTION WIDTH 14.5 % (9.6-15.2)
[2018-01-09] MEDS ORDERED: HYDR50TA13 PO (10:57)
[2018-01-09] MEDS ORDERED: POLYETHYLENE GLYCOL PO (10:57)
[2018-01-09] MEDS ORDERED: ASPI-496 PO (10:57)
[2018-01-09] MEDS ORDERED: BUSP10TA PO (10:57)
[2018-01-09] MEDS ORDERED: DICL112S2 TP (10:57)
[2018-01-09] MEDS ORDERED: DOCU100C33 PO (10:57)
[2018-01-09] MEDS ORDERED: ZIPR60CA3 PO (10:57)
[2018-01-09] MEDS ORDERED: CETI10TA18 PO (10:57)
[2018-01-09] MEDS ORDERED: BENZ0.5T35 PO (10:57)
[2018-01-09] MEDS ORDERED: SODIUM CHLORIDE FLUSH 10ML SYR IVF ONE (11:00)
[2018-01-09] MEDS ORDERED: SODIUM CHLORIDE 0.9% 1,000ML IVBOLUS ONE (11:00)
[2018-01-09 11:08] LABS: ALBUMIN 3.2 g/dL (3.4-5.0); ANION GAP 10 mmol/L (5-15); CALCIUM 9.2 mg/dL (8.5-10.1); CHLORIDE 101 mmol/L (98-107)
[2018-01-09 11:13] LABS: ALANINE AMINOTRANSFERASE 14 U/L (12-78); ALKALINE PHOSPHATASE 129 U/L (45-117); BILIRUBIN,TOTAL 0.3 mg/dL (0.2-1.0); CREATININE 0.52 mg/dL (0.55-1.02); TOTAL PROTEIN 7.3 g/dL (6.4-8.2)
[2018-01-09] MEDS ORDERED: ONDANSETRON 2MG/ML, 2ML ONE (11:19)
[2018-01-09] MEDS ORDERED: HYDROmorphone 2 MG/ML, 1ML ONE ×2 (11:22→13:54)
[2018-01-09] MEDS: HYDROmorphone 2 MG/ML, 1ML IVPush PRN ×2 (11:28→13:58)
[2018-01-09] MEDS ORDERED: ONDANSETRON 2MG/ML, 2ML IVPush ONE (11:30)
[2018-01-09] MEDS ORDERED: OMNIPAQUE 350 MG/ML, 100ML BOTTLE ONE (11:42)
[2018-01-09 11:56] LABS: MICROSCOPIC NOT IND
[2018-01-09 11:59] LABS: CULTURE INDICATED? NO
[2018-01-09] MEDS ORDERED: SODIUM CHLORIDE FLUSH 10ML SYR IVF PRN (14:00)
[2018-01-09] MEDS ORDERED: OXYC-307 PO (14:45)
[2018-01-09] MEDS ORDERED: LABETALOL 5MG/ML, 20ML IVPush PRN (15:00)
[2018-01-09] MEDS ORDERED: ACETAMINOPHEN 325 MG TABLET PO PRN (15:00)
[2018-01-09] MEDS ORDERED: TEMPLATE NON-FORMULARY MED. (Albuterol Sulfate (Proair Hfa) 90 MCG) INH SCH (15:00)
[2018-01-09] MEDS ORDERED: CEFTRIAXONE PMX 1GM/50ML 50 ML ONE (15:43)
[2018-01-09] MEDS: CEFTRIAXONE 1,000 MG in SODIUM CHLORIDE 0.9% 50 ML IV SCH (15:47)
[2018-01-09 15:50] LABS: INTERNATIONAL NORMALIZED RATIO 1.02 (0.93-1.1); PROTHROMBIN TIME 10.6 Seconds (9.6-11.5)
[2018-01-09 16:30] LABS: HCT (SEDRATE) 44.1 % (34.6-47.8)
[2018-01-09] MEDS: morphine SULFATE 10 MG/ML, 1ML IVPush PRN ×3 (17:35→23:52)
[2018-01-09] MEDS: PANTOPRAZOLE 40 MG IV IVPush SCH (17:36)
[2018-01-09] MEDS: SODIUM CHLORIDE 0.9% 1,000 ML IV SCH (17:37)
[2018-01-09 17:47] VITALS: BP 164/84
[2018-01-09 18:56] VITALS: BP 144/71
[2018-01-09] MEDS: BUSPIRONE 10 MG TABLET PO SCH (20:50)
[2018-01-09] MEDS: ZIPRASIDONE 20MG CAPSULE PO SCH (20:50)
[2018-01-09] MEDS: METRONIDAZOLE PMX 500MG/100ML 100 ML IV SCH (20:50)
[2018-01-09 21:36] LABS: CLOSTRIDIUM DIFFICILE ANTIGEN NEGATIVE; CLOSTRIDIUM DIFFICILE TOXIN NEGATIVE (Negative)
[2018-01-10 02:47] VITALS: BP 146/78
[2018-01-10] MEDS: morphine SULFATE 10 MG/ML, 1ML IVPush PRN ×2 (03:05→06:09)
[2018-01-10] MEDS: PANTOPRAZOLE 40 MG IV IVPush SCH ×2 (03:37→16:05)
[2018-01-10] MEDS: METRONIDAZOLE PMX 500MG/100ML 100 ML IV SCH ×3 (03:37→20:08)
[2018-01-10] MEDS: SODIUM CHLORIDE 0.9% 1,000 ML IV SCH ×2 (03:48→15:01)
[2018-01-10 04:42] LABS: BASOPHILS # (AUTO) 0.03 x10^3/uL (0-0.1); BASOPHILS % (AUTO) 0 % (0-1); EOSINOPHILS # (AUTO) 0.08 x10^3/uL (0-0.4); EOSINOPHILS % (AUTO) 1 % (1-7); LYMPHOCYTES # (AUTO) 1.64 x10^3/uL (1-3.4); LYMPHOCYTES % (AUTO) 18 % (22-44); MD NO; MEAN CORPUSCULAR HEMOGLOBIN 30.1 pg (27.0-34.8); MEAN CORPUSCULAR HGB CONC 33.3 g/dL (32.4-35.8); MEAN CORPUSCULAR VOLUME 90.6 fL (80-100); MEAN PLATELET VOLUME 6.1 fL (7.4-10.4); MONOCYTES # (AUTO) 0.88 x10^3/uL (0.2-0.8); MONOCYTES % (AUTO) 9 % (2-9); NEUTROPHILS # (AUTO) 6.69 x10^3/uL (1.8-6.8); NEUTROPHILS % (AUTO) 72 % (42-75); PLATELET COUNT 300 x10^3/uL (130-400); RED BLOOD COUNT 4.29 x10^6/uL (3.82-5.3); RED CELL DISTRIBUTION WIDTH 14.4 % (9.6-15.2)
[2018-01-10 04:55] LABS: CHLORIDE 107 mmol/L (98-107)
[2018-01-10 05:01] LABS: ALANINE AMINOTRANSFERASE 11 U/L (12-78); ALBUMIN 2.8 g/dL (3.4-5.0); ALKALINE PHOSPHATASE 117 U/L (45-117); ANION GAP 9 mmol/L (5-15); BILIRUBIN,TOTAL 0.3 mg/dL (0.2-1.0); CALCIUM 8.3 mg/dL (8.5-10.1); CREATININE 0.38 mg/dL (0.55-1.02); TOTAL PROTEIN 6.3 g/dL (6.4-8.2)
[2018-01-10 07:03] VITALS: BP 145/73
[2018-01-10] MEDS: ONDANSETRON 2MG/ML, 2ML IVPush PRN ×3 (08:36→20:46)
[2018-01-10] MEDS ORDERED: TRAZODONE 100MG TABLET PO SCH (09:00)
[2018-01-10] MEDS ORDERED: HYDROmorphone 2 MG/ML, 1ML ONE ×6 (09:29→23:44)
[2018-01-10 09:30] VITALS: BP 155/81
[2018-01-10] MEDS: AMLODIPINE 5 MG TABLET PO SCH (09:32)
[2018-01-10] MEDS: CETIRIZINE 10 MG TABLET PO SCH (09:34)
[2018-01-10] MEDS: LEVOTHYROXINE 50 MCG TABLET PO SCH (09:35)
[2018-01-10] MEDS: BUSPIRONE 10 MG TABLET PO SCH ×2 (09:35→20:09)
[2018-01-10] MEDS: HYDROmorphone 1 MG/ML, 1ML IV PRN ×6 (09:48→23:48)
[2018-01-10] MEDS: ZIPRASIDONE 20MG CAPSULE PO SCH ×2 (09:54→20:08)
[2018-01-10 13:05] VITALS: BP 144/82
[2018-01-10] MEDS: CEFTRIAXONE 1,000 MG in SODIUM CHLORIDE 0.9% 50 ML IV SCH (15:54)
[2018-01-10 18:38] VITALS: BP 149/74
[2018-01-11 00:16] VITALS: BP 135/77
[2018-01-11] MEDS: TRAZODONE 100MG TABLET PO SCH (00:44)
[2018-01-11] MEDS: SODIUM CHLORIDE 0.9% 1,000 ML IV SCH (01:44)
[2018-01-11] MEDS: ONDANSETRON 2MG/ML, 2ML IVPush PRN ×3 (02:41→16:14)
[2018-01-11] MEDS: HYDROmorphone 2 MG/ML, 1ML IVPush PRN ×7 (02:41→20:25)
[2018-01-11] MEDS: METRONIDAZOLE PMX 500MG/100ML 100 ML IV SCH ×2 (03:45→13:18)
[2018-01-11] MEDS: PANTOPRAZOLE 40 MG IV IVPush SCH (03:49)
[2018-01-11 05:22] LABS: BASOPHILS % (AUTO) 2 % (0-1); EOSINOPHILS # (AUTO) 0.41 x10^3/uL (0-0.4); EOSINOPHILS % (AUTO) 6 % (1-7); LYMPHOCYTES # (AUTO) 1.55 x10^3/uL (1-3.4); LYMPHOCYTES % (AUTO) 24 % (22-44); MD NO; MEAN CORPUSCULAR HEMOGLOBIN 30.3 pg (27.0-34.8); MEAN CORPUSCULAR HGB CONC 33.1 g/dL (32.4-35.8); MEAN CORPUSCULAR VOLUME 91.5 fL (80-100); MEAN PLATELET VOLUME 6.4 fL (7.4-10.4); MONOCYTES # (AUTO) 0.93 x10^3/uL (0.2-0.8); MONOCYTES % (AUTO) 15 % (2-9); NEUTROPHILS # (AUTO) 3.37 x10^3/uL (1.8-6.8); NEUTROPHILS % (AUTO) 53 % (42-75); PLATELET COUNT 281 x10^3/uL (130-400); RED BLOOD COUNT 4.17 x10^6/uL (3.82-5.3); RED CELL DISTRIBUTION WIDTH 14.4 % (9.6-15.2)
[2018-01-11 05:28] LABS: ALBUMIN 2.6 g/dL (3.4-5.0); ANION GAP 9 mmol/L (5-15); CALCIUM 8.1 mg/dL (8.5-10.1); CHLORIDE 110 mmol/L (98-107)
[2018-01-11 05:31] LABS: ALANINE AMINOTRANSFERASE 11 U/L (12-78); ALKALINE PHOSPHATASE 109 U/L (45-117); BILIRUBIN,TOTAL 0.2 mg/dL (0.2-1.0); CREATININE 0.34 mg/dL (0.55-1.02)
[2018-01-11 06:32] VITALS: BP 152/81
[2018-01-11] MEDS: ZIPRASIDONE 20MG CAPSULE PO SCH ×2 (09:18→20:33)
[2018-01-11] MEDS: morphine SULFATE 10 MG/ML, 1ML IVPush PRN (09:18)
[2018-01-11] MEDS: BUSPIRONE 10 MG TABLET PO SCH ×2 (09:19→20:33)
[2018-01-11] MEDS: CETIRIZINE 10 MG TABLET PO SCH (09:19)
[2018-01-11] MEDS: AMLODIPINE 5 MG TABLET PO SCH (09:19)
[2018-01-11] MEDS: LEVOTHYROXINE 50 MCG TABLET PO SCH (09:21)
[2018-01-11] MEDS ORDERED: SODIUM CHLORIDE 0.9% 1,000 ML IV SCH ×3 (11:30→14:41)
[2018-01-11 12:20] VITALS: BP 159/71
[2018-01-11] MEDS: PANTOPROZOLE 40MG TABLET PO SCH (15:00)
[2018-01-11 18:33] VITALS: BP 161/65
[2018-01-12] MEDS: ONDANSETRON 2MG/ML, 2ML IVPush PRN ×4 (00:22→20:41)
[2018-01-12] MEDS: HYDROmorphone 2 MG/ML, 1ML IVPush PRN ×8 (00:22→23:56)
[2018-01-12] MEDS: TRAZODONE 100MG TABLET PO SCH ×2 (00:23→23:00)
[2018-01-12 01:10] VITALS: BP 130/77
[2018-01-12] MEDS: SODIUM CHLORIDE 0.9% 1,000 ML IV SCH ×2 (03:03→16:30)
[2018-01-12 05:23] LABS: BASOPHILS # (AUTO) 0.07 x10^3/uL (0-0.1); BASOPHILS % (AUTO) 1 % (0-1); EOSINOPHILS # (AUTO) 0.45 x10^3/uL (0-0.4); EOSINOPHILS % (AUTO) 5 % (1-7); LYMPHOCYTES # (AUTO) 1.73 x10^3/uL (1-3.4); LYMPHOCYTES % (AUTO) 21 % (22-44); MD NO; MEAN CORPUSCULAR HEMOGLOBIN 29.9 pg (27.0-34.8); MEAN CORPUSCULAR HGB CONC 33.1 g/dL (32.4-35.8); MEAN CORPUSCULAR VOLUME 90.4 fL (80-100); MEAN PLATELET VOLUME 6.4 fL (7.4-10.4); MONOCYTES # (AUTO) 1.05 x10^3/uL (0.2-0.8); MONOCYTES % (AUTO) 13 % (2-9); NEUTROPHILS # (AUTO) 4.98 x10^3/uL (1.8-6.8); NEUTROPHILS % (AUTO) 60 % (42-75); PLATELET COUNT 291 x10^3/uL (130-400); RED CELL DISTRIBUTION WIDTH 14.3 % (9.6-15.2)
[2018-01-12 05:32] LABS: ALANINE AMINOTRANSFERASE 13 U/L (12-78); ALBUMIN 2.7 g/dL (3.4-5.0); ANION GAP 8 mmol/L (5-15); CHLORIDE 109 mmol/L (98-107); CREATININE 0.38 mg/dL (0.55-1.02)
[2018-01-12 05:34] LABS: ALKALINE PHOSPHATASE 107 U/L (45-117); BILIRUBIN,TOTAL 0.2 mg/dL (0.2-1.0); TOTAL PROTEIN 6.2 g/dL (6.4-8.2)
[2018-01-12 06:42] VITALS: BP 147/76
[2018-01-12] MEDS: PANTOPROZOLE 40MG TABLET PO SCH ×2 (06:48→18:09)
[2018-01-12] MEDS: LEVOTHYROXINE 50 MCG TABLET PO SCH (06:48)
[2018-01-12] MEDS: CETIRIZINE 10 MG TABLET PO SCH (08:02)
[2018-01-12] MEDS: BUSPIRONE 10 MG TABLET PO SCH ×2 (08:02→20:42)
[2018-01-12] MEDS: AMLODIPINE 5 MG TABLET PO SCH (08:02)
[2018-01-12] MEDS: ZIPRASIDONE 20MG CAPSULE PO SCH ×2 (08:05→20:58)
[2018-01-12] MEDS ORDERED: LOPERAMIDE 2 MG CAPSULE PO SCH (09:00)
[2018-01-12] MEDS ORDERED: LOPERAMIDE 2 MG CAPSULE PO PRN (10:00)
[2018-01-12 13:03] VITALS: BP 149/77
[2018-01-12 19:10] VITALS: BP 159/72
[2018-01-13 02:44] VITALS: BP 156/85
[2018-01-13] MEDS: HYDROmorphone 2 MG/ML, 1ML IVPush PRN ×7 (02:57→21:27)
[2018-01-13] MEDS: ONDANSETRON 2MG/ML, 2ML IVPush PRN ×3 (02:57→15:09)
[2018-01-13 05:18] LABS: BASOPHILS # (AUTO) 0.07 x10^3/uL (0-0.1); BASOPHILS % (AUTO) 1 % (0-1); EOSINOPHILS # (AUTO) 0.46 x10^3/uL (0-0.4); EOSINOPHILS % (AUTO) 7 % (1-7); LYMPHOCYTES # (AUTO) 1.61 x10^3/uL (1-3.4); LYMPHOCYTES % (AUTO) 24 % (22-44); MD NO; MEAN PLATELET VOLUME 6.6 fL (7.4-10.4); MONOCYTES # (AUTO) 0.86 x10^3/uL (0.2-0.8); MONOCYTES % (AUTO) 13 % (2-9); NEUTROPHILS # (AUTO) 3.78 x10^3/uL (1.8-6.8); NEUTROPHILS % (AUTO) 56 % (42-75); PLATELET COUNT 293 x10^3/uL (130-400); RED BLOOD COUNT 4.12 x10^6/uL (3.82-5.3); RED CELL DISTRIBUTION WIDTH 14.5 % (9.6-15.2)
[2018-01-13 05:31] LABS: CHLORIDE 107 mmol/L (98-107)
[2018-01-13 05:42] LABS: ALANINE AMINOTRANSFERASE 13 U/L (12-78); ALBUMIN 2.7 g/dL (3.4-5.0); ALKALINE PHOSPHATASE 100 U/L (45-117); ANION GAP 8 mmol/L (5-15); BILIRUBIN,TOTAL 0.2 mg/dL (0.2-1.0); CALCIUM 8.5 mg/dL (8.5-10.1); CREATININE 0.43 mg/dL (0.55-1.02); TOTAL PROTEIN 6.1 g/dL (6.4-8.2)
[2018-01-13] MEDS: SODIUM CHLORIDE 0.9% 1,000 ML IV SCH (06:04)
[2018-01-13] MEDS: PANTOPROZOLE 40MG TABLET PO SCH ×2 (06:43→18:17)
[2018-01-13 06:50] VITALS: BP 156/78
[2018-01-13] MEDS: ZIPRASIDONE 20MG CAPSULE PO SCH ×2 (08:38→21:26)
[2018-01-13] MEDS: LEVOTHYROXINE 50 MCG TABLET PO SCH (08:39)
[2018-01-13] MEDS: CETIRIZINE 10 MG TABLET PO SCH (08:39)
[2018-01-13] MEDS: BUSPIRONE 10 MG TABLET PO SCH ×2 (08:40→21:26)
[2018-01-13] MEDS: AMLODIPINE 5 MG TABLET PO SCH (08:40)
[2018-01-13] MEDS ORDERED: SUCRALFATE 1 GM/10 ML UDC ONE (12:39)
[2018-01-13] MEDS: SUCRALFATE 1 GM/10 ML UDC PO SCH ×3 (12:43→21:27)
[2018-01-13 12:47] VITALS: BP 147/80
[2018-01-13 19:36] VITALS: BP 156/73
[2018-01-13] MEDS: TRAZODONE 100MG TABLET PO SCH (23:20)
[2018-01-14] MEDS: HYDROmorphone 2 MG/ML, 1ML IVPush PRN ×3 (01:04→07:22)
[2018-01-14 01:23] VITALS: BP 107/71
[2018-01-14] MEDS: ONDANSETRON 2MG/ML, 2ML IVPush PRN ×3 (05:19→18:04)
[2018-01-14] MEDS: PANTOPROZOLE 40MG TABLET PO SCH ×2 (06:33→18:37)
[2018-01-14] MEDS: SUCRALFATE 1 GM/10 ML UDC PO SCH (06:33)
[2018-01-14 06:41] VITALS: BP 124/77
[2018-01-14] MEDS: CETIRIZINE 10 MG TABLET PO SCH (09:05)
[2018-01-14] MEDS: BUSPIRONE 10 MG TABLET PO SCH ×2 (09:05→20:57)
[2018-01-14] MEDS: ZIPRASIDONE 20MG CAPSULE PO SCH ×2 (09:05→20:57)
[2018-01-14] MEDS: AMLODIPINE 5 MG TABLET PO SCH (09:05)
[2018-01-14] MEDS: LEVOTHYROXINE 50 MCG TABLET PO SCH (09:05)
[2018-01-14] MEDS: morphine SULFATE 10 MG/ML, 1ML IVPush PRN ×4 (10:46→21:05)
[2018-01-14 12:29] VITALS: BP 121/74
[2018-01-14] MEDS ORDERED: ALBUTEROL SULFATE 2.5 MG/3 ML NPPB PRN (16:00)
[2018-01-14 19:34] VITALS: BP 137/75
[2018-01-14] MEDS: TRAZODONE 100MG TABLET PO SCH (23:00)
[2018-01-15 03:45] VITALS: BP 121/72
[2018-01-15] MEDS: morphine SULFATE 10 MG/ML, 1ML IVPush PRN ×2 (03:59→07:05)
[2018-01-15 06:37] VITALS: BP 138/74
[2018-01-15] MEDS: PANTOPROZOLE 40MG TABLET PO SCH ×2 (06:58→20:59)
[2018-01-15] MEDS ORDERED: MORPHINE SULFATE 4 MG/ML, 1ML IVPush PRN (07:30)
[2018-01-15] MEDS: CETIRIZINE 10 MG TABLET PO SCH (08:25)
[2018-01-15] MEDS: POLYETHYLENE GLYCOL 17 GM PACKET PO SCH (08:25)
[2018-01-15] MEDS: BUSPIRONE 10 MG TABLET PO SCH ×2 (08:26→20:59)
[2018-01-15] MEDS: AMLODIPINE 5 MG TABLET PO SCH (08:26)
[2018-01-15] MEDS: LEVOTHYROXINE 50 MCG TABLET PO SCH (08:26)
[2018-01-15] MEDS: ZIPRASIDONE 20MG CAPSULE PO SCH ×2 (08:27→20:59)
[2018-01-15] MEDS: BISACODYL 5 MG EC TABLET PO SCH (08:28)
[2018-01-15] MEDS: ONDANSETRON ODT 4 MG PO PRN ×3 (08:29→20:59)
[2018-01-15 12:22] VITALS: BP 117/68
[2018-01-15] MEDS: HYDROcodone/APAP 5/325 TABLET PO PRN ×3 (12:55→20:59)
[2018-01-15 19:07] VITALS: BP 133/74
[2018-01-15] MEDS: TRAZODONE 100MG TABLET PO SCH (23:09)
[2018-01-16 02:29] VITALS: BP 119/76
[2018-01-16] MEDS: ONDANSETRON ODT 4 MG PO PRN ×4 (02:47→21:10)
[2018-01-16] MEDS: HYDROcodone/APAP 5/325 TABLET PO PRN ×6 (02:47→23:53)
[2018-01-16 05:39] LABS: ALBUMIN 2.6 g/dL (3.4-5.0); CALCIUM 8.5 mg/dL (8.5-10.1); CHLORIDE 109 mmol/L (98-107); MEAN CORPUSCULAR HEMOGLOBIN 30.6 pg (27.0-34.8); MEAN CORPUSCULAR HGB CONC 33.6 g/dL (32.4-35.8); MEAN CORPUSCULAR VOLUME 90.9 fL (80-100); MEAN PLATELET VOLUME 6.8 fL (7.4-10.4); PLATELET COUNT 217 x10^3/uL (130-400); RED BLOOD COUNT 4.34 x10^6/uL (3.82-5.3); RED CELL DISTRIBUTION WIDTH 14.7 % (9.6-15.2)
[2018-01-16 05:44] LABS: ALANINE AMINOTRANSFERASE 16 U/L (12-78); ALKALINE PHOSPHATASE 95 U/L (45-117); ANION GAP 7 mmol/L (5-15); BILIRUBIN,TOTAL 0.1 mg/dL (0.2-1.0); CREATININE 0.38 mg/dL (0.55-1.02); TOTAL PROTEIN 6.1 g/dL (6.4-8.2)
[2018-01-16 06:22] LABS: MD YES
[2018-01-16 06:28] LABS: LYMPH#(MANUAL) 1.29 x10^3/uL (1-3.4); LYMPHS% (MANUAL) 28 % (22-44); MONOS#(MANUAL) 0.74 x10^3/uL (0.3-2.7); MONOS% (MANUAL) 16 % (2-9); SEG#(MANUAL) 2.58 x10^3/uL (1.8-6.8); SEGS% (MANUAL) 56 % (42-75)
[2018-01-16 06:33] LABS: <PLATELET ESTIMATE> ADEQUATE; <PLT MORPHOLOGY> NORMAL PLT MORPH; <RBC MORPHOLOGY> NORMAL
[2018-01-16] MEDS: PANTOPROZOLE 40MG TABLET PO SCH ×2 (06:47→18:10)
[2018-01-16 07:00] VITALS: BP 146/69
[2018-01-16] MEDS: BUSPIRONE 10 MG TABLET PO SCH ×2 (08:14→21:10)
[2018-01-16] MEDS: AMLODIPINE 5 MG TABLET PO SCH (08:14)
[2018-01-16] MEDS: POLYETHYLENE GLYCOL 17 GM PACKET PO SCH (08:14)
[2018-01-16] MEDS: CETIRIZINE 10 MG TABLET PO SCH (08:14)
[2018-01-16] MEDS: LEVOTHYROXINE 50 MCG TABLET PO SCH (08:14)
[2018-01-16] MEDS: BISACODYL 5 MG EC TABLET PO SCH (08:14)
[2018-01-16] MEDS: ZIPRASIDONE 20MG CAPSULE PO SCH ×3 (08:20→21:16)
[2018-01-16 13:22] VITALS: BP 133/69
[2018-01-16 19:44] VITALS: BP 160/71
[2018-01-17] MEDS: TRAZODONE 100MG TABLET PO SCH (00:33)
[2018-01-17 01:38] VITALS: BP 139/77
[2018-01-17] MEDS: ONDANSETRON ODT 4 MG PO PRN ×2 (05:45→11:40)
[2018-01-17] MEDS: HYDROcodone/APAP 5/325 TABLET PO PRN ×3 (05:45→14:04)
[2018-01-17] MEDS: PANTOPROZOLE 40MG TABLET PO SCH (05:45)
[2018-01-17 06:33] VITALS: BP 150/73
[2018-01-17] MEDS: BUSPIRONE 10 MG TABLET PO SCH (08:20)
[2018-01-17] MEDS ORDERED: PANT40TA5 PO (08:20)
[2018-01-17] MEDS: POLYETHYLENE GLYCOL 17 GM PACKET PO SCH (08:20)
[2018-01-17] MEDS ORDERED: ACET325T14 PO (08:20)
[2018-01-17] MEDS: BISACODYL 5 MG EC TABLET PO SCH (08:20)
[2018-01-17] MEDS ORDERED: ONDA4TAB13 PO (08:20)
[2018-01-17] MEDS: CETIRIZINE 10 MG TABLET PO SCH (08:20)
[2018-01-17] MEDS: LEVOTHYROXINE 50 MCG TABLET PO SCH (08:21)
[2018-01-17] MEDS: ZIPRASIDONE 20MG CAPSULE PO SCH (08:21)
[2018-01-17] MEDS: AMLODIPINE 5 MG TABLET PO SCH (08:21)
[2018-01-17 12:05] VITALS: BP 150/70
== END 2018-01-17 15:52 | DRG 380 ==
LOC: ED 10:38 → EDIP 13:42 → 4NOR 16:33
PROVIDERS: ADMIT Internal Medicine; ATTEND Hospitalist
DX: K25.5 Chronic or unspecified gastric ulcer with perforation (principal); E43 Unspecified severe protein-calorie malnutrition; K56.7 Ileus, unspecified; K86.2 Cyst of pancreas; E87.1 Hypo-osmolality and hyponatremia; J44.9 Chronic obstructive pulmonary disease, unspecified; I10 Essential (primary) hypertension; K21.9 Gastro-esophageal reflux disease without esophagitis; E03.9 Hypothyroidism, unspecified; G89.29 Other chronic pain; M54.9 Dorsalgia, unspecified; E66.9 Obesity, unspecified; D72.829 Elevated white blood cell count, unspecified; E11.65 Type 2 diabetes mellitus with hyperglycemia; E78.5 Hyperlipidemia, unspecified; K58.9 Irritable bowel syndrome, unspecified; K66.8 Other specified disorders of peritoneum; K83.8 Other specified diseases of biliary tract; F25.9 Schizoaffective disorder, unspecified; F32.9 Major depressive disorder, single episode, unspecified; I25.10 Atherosclerotic heart disease of native coronary artery without angina pectoris; I25.2 Old myocardial infarction; Z87.11 Personal history of peptic ulcer disease; Z88.2 Allergy status to sulfonamides; Z68.22 Body mass index [BMI] 22.0-22.9, adult; Z82.49 Family history of ischemic heart disease and other diseases of the circulatory system; Z87.891 Personal history of nicotine dependence; Z90.49 Acquired absence of other specified parts of digestive tract; Z95.0 Presence of cardiac pacemaker; Z98.84 Bariatric surgery status
CPT/HCPCS: 36415; 74018; 74150; 74177; 76700; 80053; 81003; 83605; 83690; 83735; 83880; 84100; 84443; 85025; 85610; 85651; 87040; 87324; 93005; 94640; 96361; 96374; 96375; G0378; J0696; J1170; J2405; J7613; Q0162; Q9967; C9113; J2270; J7030

== ENCOUNTER 2018-01-17 18:57 | Emergency (ER) | payer MEDICARE, MEDICAID ==
[~2018-01-17] VITALS: Ht 152.4 cm; Wt 57.0 kg
[~2018-01-17 18:57] MED LIST changes: +ACET325T14 PO; +CETI10TA18 PO; +DICL112S2 TP; +DOCU100C33 PO; +ONDA4TAB13 PO; +OXYC-307 PO; +PANT40TA5 PO; +POLYETHYLENE GLYCOL PO; +ZIPR60CA3 PO
[2018-01-17 19:04] VITALS: BP 155/62
[2018-01-17] MEDS ORDERED: HYDROcodone/APAP 10/325 MG TABLET PO ONE (19:30)
[2018-01-17] MEDS ORDERED: HYDROcodone/APAP 10/325 MG TABLET ONE (19:38)
== END 2018-01-17 20:21 | disposition home or self-care (01) ==
LOC: ED 19:30
DX: R10.84 Generalized abdominal pain (principal); J44.9 Chronic obstructive pulmonary disease, unspecified; K21.9 Gastro-esophageal reflux disease without esophagitis; E03.9 Hypothyroidism, unspecified; M54.9 Dorsalgia, unspecified; G89.29 Other chronic pain; I10 Essential (primary) hypertension
CPT/HCPCS: 99283

== ENCOUNTER 2018-01-29 16:16 | Observation (INO) | payer MEDICARE, MEDICAID ==
[~2018-01-29] VITALS: Ht 152.4 cm; Wt 55.0 kg
[2018-01-29 17:43] LABS: BASOPHILS # (AUTO) 0.09 x10^3/uL (0-0.1); BASOPHILS % (AUTO) 1 % (0-1); EOSINOPHILS # (AUTO) 0.14 x10^3/uL (0-0.4); EOSINOPHILS % (AUTO) 2 % (1-7); LYMPHOCYTES # (AUTO) 2.14 x10^3/uL (1-3.4); LYMPHOCYTES % (AUTO) 28 % (22-44); MD NO; MEAN CORPUSCULAR HEMOGLOBIN 29.8 pg (27.0-34.8); MEAN CORPUSCULAR HGB CONC 33.2 g/dL (32.4-35.8); MEAN CORPUSCULAR VOLUME 89.7 fL (80-100); MONOCYTES # (AUTO) 0.77 x10^3/uL (0.2-0.8); MONOCYTES % (AUTO) 10 % (2-9); NEUTROPHILS # (AUTO) 4.64 x10^3/uL (1.8-6.8); NEUTROPHILS % (AUTO) 60 % (42-75); PLATELET COUNT 310 x10^3/uL (130-400); RED BLOOD COUNT 4.64 x10^6/uL (3.82-5.3); RED CELL DISTRIBUTION WIDTH 15.4 % (9.6-15.2)
[2018-01-29 17:54] LABS: ALANINE AMINOTRANSFERASE 15 U/L (12-78); ALBUMIN 3.4 g/dL (3.4-5.0); CALCIUM 8.7 mg/dL (8.5-10.1); CHLORIDE 109 mmol/L (98-107)
[2018-01-29 17:57] LABS: ACETAMINOPHEN < 2 mcg/mL (10-30); ALKALINE PHOSPHATASE 88 U/L (45-117); ANION GAP 8 mmol/L (5-15); BILIRUBIN,TOTAL 0.5 mg/dL (0.2-1.0); CREATININE 0.51 mg/dL (0.55-1.02); SALICYLATE LEVEL < 1.7 mg/dL (2.8-20.0)
[2018-01-29] MEDS ORDERED: HYDROcodone/APAP 10/325 MG TABLET ONE (17:59)
[2018-01-29] MEDS ORDERED: ONDANSETRON ODT 4 MG ONE (17:59)
[2018-01-29] MEDS ORDERED: ONDANSETRON ODT 4 MG PO ONE (18:00)
[2018-01-29] MEDS ORDERED: HYDROcodone/APAP 10/325 MG TABLET PO ONE (18:00)
[2018-01-29 19:45] LABS: MICROSCOPIC NOT IND
[2018-01-29 19:47] LABS: CULTURE INDICATED? NO
[2018-01-29 19:57] LABS: AMPHETAMINE SCREEN, URINE Negative (Negative); BARBITURATE SCREEN, URINE Negative (Negative); BENZODIAZEPINE SCREEN, URINE Negative (Negative); CANNABINOID SCREEN, URINE Negative (Negative); COCAINE SCREEN, URINE Negative (Negative); METHADONE SCREEN, URINE Negative (Negative); OPIATE SCREEN, URINE Positive (Negative)
[2018-01-29] MEDS ORDERED: HYDR-3307 PO (22:53)
[2018-01-30] MEDS ORDERED: HYDROcodone/APAP 10/325 MG TABLET ONE ×5 (00:10→19:42)
[2018-01-30] MEDS ORDERED: TRAZODONE 50MG TABLET ONE ×2 (00:10→19:42)
[2018-01-30] MEDS ORDERED: HYDROcodone/APAP 10/325 MG TABLET PO ONE (00:30)
[2018-01-30] MEDS ORDERED: TRAZODONE 100MG TABLET PO ONE (00:30)
[2018-01-30] MEDS ORDERED: POLYETHYLENE GLYCOL 17 GM PACKET PO PRN (01:00)
[2018-01-30] MEDS ORDERED: ALBUTEROL SULFATE 2.5 MG/3 ML NPPB PRN (01:00)
[2018-01-30] MEDS ORDERED: DOCUSATE 100 MG CAPSULE PO PRN (01:00)
[2018-01-30] MEDS ORDERED: ACETAMINOPHEN 325 MG TABLET PO PRN (01:00)
[2018-01-30] MEDS ORDERED: hydrOXyzine 50MG TABLET ONE ×5 (01:31→19:41)
[2018-01-30] MEDS ORDERED: BENZTROPINE 1 MG TABLET ONE ×2 (01:56→19:42)
[2018-01-30] MEDS ORDERED: ZIPRASIDONE 20MG CAPSULE ONE ×3 (01:56→19:41)
[2018-01-30] MEDS: ZIPRASIDONE 20MG CAPSULE PO SCH ×3 (01:59→19:50)
[2018-01-30] MEDS: hydrOXyzine 50MG TABLET PO SCH ×4 (01:59→19:50)
[2018-01-30] MEDS: BENZTROPINE 1 MG TABLET PO SCH ×2 (01:59→19:50)
[2018-01-30] MEDS ORDERED: LEVOTHYROXINE 50 MCG TABLET PO SCH (06:00)
[2018-01-30] MEDS: HYDROcodone/APAP 10/325 MG TABLET PO PRN ×4 (06:04→19:50)
[2018-01-30] MEDS ORDERED: PANTOPRAZOLE 20MG TABLET ONE ×2 (08:15→19:41)
[2018-01-30] MEDS ORDERED: AMLODIPINE 5 MG TABLET ONE (08:16)
[2018-01-30] MEDS ORDERED: DOCUSATE 100 MG CAPSULE ONE (08:17)
[2018-01-30] MEDS: PANTOPROZOLE 40MG TABLET PO SCH ×2 (08:50→19:50)
[2018-01-30] MEDS: AMLODIPINE 5 MG TABLET PO SCH (08:51)
[2018-01-30] MEDS: BUSPIRONE 10 MG TABLET PO SCH ×2 (08:51→19:50)
[2018-01-30] MEDS ORDERED: ONDANSETRON ODT 4 MG ONE ×2 (08:59→20:24)
[2018-01-30] MEDS ORDERED: ASPIRIN 81 MG TABLET CHEW ONE (08:59)
[2018-01-30] MEDS ORDERED: DOCUSATE 100 MG CAPSULE PO SCH (09:00)
[2018-01-30] MEDS ORDERED: CETIRIZINE 10 MG TABLET PO SCH (09:00)
[2018-01-30] MEDS: ONDANSETRON ODT 4 MG PO PRN ×2 (09:01→20:30)
[2018-01-30] MEDS: DICLOFENAC SODIUM TP SCH ×2 (09:06→19:36)
[2018-01-30] MEDS ORDERED: POLYETHYLENE GLYCOL 17 GM PACKET ONE (09:24)
[2018-01-30] MEDS ORDERED: ASPIRIN 81 MG TABLET EC PO ONE (11:00)
[2018-01-30] MEDS ORDERED: hydrOXyzine 10MG TABLET PO PRN (11:30)
[2018-01-30] MEDS ORDERED: GLYCERIN ADULT SUPP PR ONE (15:00)
[2018-01-30] MEDS ORDERED: TRAZODONE HCL 100 MG PO SCH (21:00)
[2018-01-31] MEDS ORDERED: HYDROcodone/APAP 10/325 MG TABLET ONE ×3 (00:23→08:56)
[2018-01-31] MEDS: HYDROcodone/APAP 10/325 MG TABLET PO PRN ×3 (00:25→08:57)
[2018-01-31] MEDS ORDERED: ONDANSETRON ODT 4 MG ONE (06:38)
[2018-01-31] MEDS: ONDANSETRON ODT 4 MG PO PRN (06:39)
[2018-01-31] MEDS ORDERED: POLYETHYLENE GLYCOL 17 GM PACKET NG SCH (09:00)
[2018-01-31] MEDS ORDERED: ZIPRASIDONE 20MG CAPSULE ONE (10:18)
[2018-01-31] MEDS ORDERED: AMLODIPINE 5 MG TABLET ONE (10:19)
[2018-01-31] MEDS ORDERED: PANTOPRAZOLE 20MG TABLET ONE (10:23)
[2018-01-31] MEDS ORDERED: hydrOXyzine 50MG TABLET ONE (10:24)
[2018-01-31] MEDS: hydrOXyzine 50MG TABLET PO SCH (10:26)
[2018-01-31] MEDS: AMLODIPINE 5 MG TABLET PO SCH (10:26)
[2018-01-31] MEDS: ZIPRASIDONE 20MG CAPSULE PO SCH (10:26)
[2018-01-31 10:27] VITALS: BP 142/69
== END 2018-01-31 10:52 | disposition other institution (70) ==
LOC: ED 16:30 → EDIP 21:25
PROVIDERS: ADMIT Internal Medicine; ATTEND Internal Medicine
DX: R45.851 Suicidal ideations (principal); E03.9 Hypothyroidism, unspecified; E11.9 Type 2 diabetes mellitus without complications; E43 Unspecified severe protein-calorie malnutrition; F11.20 Opioid dependence, uncomplicated; F25.9 Schizoaffective disorder, unspecified; F32.9 Major depressive disorder, single episode, unspecified; G89.29 Other chronic pain; I10 Essential (primary) hypertension; J44.9 Chronic obstructive pulmonary disease, unspecified; K21.9 Gastro-esophageal reflux disease without esophagitis; K59.09 Other constipation; Z87.11 Personal history of peptic ulcer disease; Z91.5 Personal history of self-harm; Z95.0 Presence of cardiac pacemaker; Z98.84 Bariatric surgery status
CPT/HCPCS: 36415; 80053; 80307; 80329; 81003; 85025; 99285; G0378; Q0162; G0480

== ENCOUNTER 2018-01-31 09:57 | Inpatient (IN) | payer MEDICARE, MEDICAID ==
[~2018-01-31] VITALS: Ht 152.4 cm; Wt 55.0 kg
[~2018-01-31 09:57] MED LIST changes: +HYDR-3307 PO
[2018-01-31] MEDS ORDERED: BISACODYL 10 MG SUPP PR PRN (10:30)
[2018-01-31 10:59] VITALS: BP 150/90
[2018-01-31] MEDS ORDERED: PLEASE ENTER HEIGHT AND WEIGHT MC SCH (11:00)
[2018-01-31] MEDS ORDERED: ONDANSETRON ODT 4 MG PO PRN (11:30)
[2018-01-31] MEDS ORDERED: ACETAMINOPHEN 325 MG TABLET PO PRN (12:00)
[2018-01-31] MEDS ORDERED: ALBUTEROL SULFATE 90 MCG INH SCH (12:00)
[2018-01-31] MEDS ORDERED: HYDROcodone/APAP 5/325 TABLET ONE (13:05)
[2018-01-31] MEDS: HYDROcodone/APAP 10/325 MG TABLET PO PRN ×3 (13:24→22:56)
[2018-01-31] MEDS: ONDANSETRON ODT 4 MG PO PRN (15:44)
[2018-01-31] MEDS: hydrOXyzine 50MG TABLET PO SCH ×2 (15:44→20:34)
[2018-01-31] MEDS: INSULIN LISPRO 100 UNITS/ML, PEN SQ-INSULIN SCH ×2 (16:29→20:39)
[2018-01-31 19:31] VITALS: BP 117/68
[2018-01-31] MEDS: ZIPRASIDONE 20MG CAPSULE PO SCH (20:33)
[2018-01-31] MEDS: BENZTROPINE 1 MG TABLET PO SCH (20:33)
[2018-01-31] MEDS: POLYETHYLENE GLYCOL 17 GM PACKET PO PRN (20:34)
[2018-01-31] MEDS: BUSPIRONE 10 MG TABLET PO SCH (20:34)
[2018-01-31] MEDS: DICLOFENAC SODIUM TP SCH (21:00)
[2018-01-31] MEDS ORDERED: POLYETHYLENE GLYCOL PO SCH (21:00)
[2018-01-31] MEDS: TRAZODONE 100MG TABLET PO SCH (22:02)
[2018-02-01] MEDS: HYDROcodone/APAP 10/325 MG TABLET PO PRN ×5 (05:22→20:02)
[2018-02-01] MEDS: ASPIRIN 81 MG TABLET EC PO SCH (05:22)
[2018-02-01] MEDS: LEVOTHYROXINE 50 MCG TABLET PO SCH (05:22)
[2018-02-01 05:33] LABS: HCT (SEDRATE) 45.7 % (34.6-47.8)
[2018-02-01 06:09] LABS: CHOL/HDL RATIO 3.3; FREE T4 (FREE THYROXINE) 1.07 ng/dL (0.76-1.46); LDL/HDL RATIO 1.9 (0.5-3.0); THYROID STIMULATING HORMONE 0.948 mIU/L (0.358-3.740)
[2018-02-01] MEDS: INSULIN LISPRO 100 UNITS/ML, PEN SQ-INSULIN SCH ×4 (07:30→21:00)
[2018-02-01] MEDS: PANTOPROZOLE 40MG TABLET PO SCH (07:35)
[2018-02-01] MEDS: ONDANSETRON ODT 4 MG PO PRN ×2 (07:35→15:39)
[2018-02-01 07:40] VITALS: BP 111/66
[2018-02-01] MEDS: CETIRIZINE 10 MG TABLET PO SCH (08:35)
[2018-02-01] MEDS: hydrOXyzine 50MG TABLET PO SCH ×3 (08:35→21:32)
[2018-02-01] MEDS: SENNA/DOCUSATE TABLET PO SCH (08:36)
[2018-02-01] MEDS: ZIPRASIDONE 20MG CAPSULE PO SCH (08:36)
[2018-02-01] MEDS: DOCUSATE 100 MG CAPSULE PO SCH (08:36)
[2018-02-01] MEDS: BUSPIRONE 10 MG TABLET PO SCH ×2 (08:36→21:26)
[2018-02-01] MEDS: AMLODIPINE 5 MG TABLET PO SCH (08:36)
[2018-02-01] MEDS: DICLOFENAC SODIUM TP SCH ×2 (08:38→21:00)
[2018-02-01] MEDS: POLYETHYLENE GLYCOL 17 GM PACKET PO PRN (09:57)
[2018-02-01 19:28] VITALS: BP 176/90
[2018-02-01 21:00] VITALS: BP 169/80
[2018-02-01] MEDS: BENZTROPINE 1 MG TABLET PO SCH (21:26)
[2018-02-01] MEDS: ZIPRASIDONE 40MG CAPSULE PO SCH (21:28)
[2018-02-01] MEDS: TRAZODONE 100MG TABLET PO SCH (21:32)
[2018-02-02] MEDS: ASPIRIN 81 MG TABLET EC PO SCH (05:06)
[2018-02-02] MEDS: LEVOTHYROXINE 50 MCG TABLET PO SCH (05:07)
[2018-02-02] MEDS: HYDROcodone/APAP 10/325 MG TABLET PO PRN ×4 (05:08→22:08)
[2018-02-02] MEDS: ONDANSETRON ODT 4 MG PO PRN (05:12)
[2018-02-02 05:59] LABS: BASOPHILS # (AUTO) 0.02 x10^3/uL (0-0.1); BASOPHILS % (AUTO) 0 % (0-1); EOSINOPHILS # (AUTO) 0.04 x10^3/uL (0-0.4); EOSINOPHILS % (AUTO) 0 % (1-7); LYMPHOCYTES # (AUTO) 1.57 x10^3/uL (1-3.4); LYMPHOCYTES % (AUTO) 13 % (22-44); MD NO; MEAN CORPUSCULAR HEMOGLOBIN 30.5 pg (27.0-34.8); MEAN CORPUSCULAR VOLUME 89.7 fL (80-100); MEAN PLATELET VOLUME 7.4 fL (7.4-10.4); MONOCYTES # (AUTO) 1.15 x10^3/uL (0.2-0.8); MONOCYTES % (AUTO) 9 % (2-9); NEUTROPHILS # (AUTO) 9.59 x10^3/uL (1.8-6.8); NEUTROPHILS % (AUTO) 78 % (42-75); PLATELET COUNT 282 x10^3/uL (130-400); RED BLOOD COUNT 5.14 x10^6/uL (3.82-5.3); RED CELL DISTRIBUTION WIDTH 14.9 % (9.6-15.2)
[2018-02-02 06:03] LABS: ANION GAP 10 mmol/L (5-15); CALCIUM 9.4 mg/dL (8.5-10.1); CHLORIDE 103 mmol/L (98-107); CREATININE 0.59 mg/dL (0.55-1.02)
[2018-02-02] MEDS: INSULIN LISPRO 100 UNITS/ML, PEN SQ-INSULIN SCH ×4 (07:30→22:10)
[2018-02-02] MEDS: PANTOPROZOLE 40MG TABLET PO SCH (07:45)
[2018-02-02 07:56] VITALS: BP 138/75
[2018-02-02] MEDS: hydrOXyzine 50MG TABLET PO SCH ×3 (08:53→22:08)
[2018-02-02] MEDS: BUSPIRONE 10 MG TABLET PO SCH ×2 (08:53→22:08)
[2018-02-02] MEDS: AMLODIPINE 5 MG TABLET PO SCH (08:54)
[2018-02-02] MEDS: CETIRIZINE 10 MG TABLET PO SCH (08:54)
[2018-02-02] MEDS: DOCUSATE 100 MG CAPSULE PO SCH (08:54)
[2018-02-02] MEDS: SENNA/DOCUSATE TABLET PO SCH (08:54)
[2018-02-02] MEDS: DICLOFENAC SODIUM TP SCH (08:54)
[2018-02-02] MEDS: POLYETHYLENE GLYCOL 17 GM PACKET PO PRN (08:55)
[2018-02-02] MEDS: ZIPRASIDONE 40MG CAPSULE PO SCH ×2 (08:58→22:08)
[2018-02-02] MEDS: PROMETHAZINE 25 MG/ML, 1ML IM PRN ×3 (10:36→21:00)
[2018-02-02 20:00] VITALS: BP 148/77
[2018-02-02] MEDS: BENZTROPINE 1 MG TABLET PO SCH (22:09)
[2018-02-02] MEDS: TRAZODONE 100MG TABLET PO SCH (23:01)
[2018-02-03] MEDS: ASPIRIN 81 MG TABLET EC PO SCH (05:45)
[2018-02-03] MEDS: LEVOTHYROXINE 50 MCG TABLET PO SCH (05:45)
[2018-02-03] MEDS: HYDROcodone/APAP 10/325 MG TABLET PO PRN ×3 (05:45→17:44)
[2018-02-03] MEDS: PROMETHAZINE 25 MG/ML, 1ML IM PRN ×2 (05:58→15:16)
[2018-02-03] MEDS: INSULIN LISPRO 100 UNITS/ML, PEN SQ-INSULIN SCH ×4 (07:15→21:19)
[2018-02-03] MEDS: PANTOPROZOLE 40MG TABLET PO SCH (07:34)
[2018-02-03 08:00] VITALS: BP 133/83
[2018-02-03] MEDS: hydrOXyzine 50MG TABLET PO SCH ×3 (08:31→21:17)
[2018-02-03] MEDS: BUSPIRONE 10 MG TABLET PO SCH ×2 (08:31→21:17)
[2018-02-03] MEDS: DOCUSATE 100 MG CAPSULE PO SCH (08:31)
[2018-02-03] MEDS: ZIPRASIDONE 40MG CAPSULE PO SCH ×2 (08:32→21:18)
[2018-02-03] MEDS: AMLODIPINE 5 MG TABLET PO SCH (08:32)
[2018-02-03] MEDS: CETIRIZINE 10 MG TABLET PO SCH (08:32)
[2018-02-03] MEDS: SENNA/DOCUSATE TABLET PO SCH (08:32)
[2018-02-03] MEDS: POLYETHYLENE GLYCOL 17 GM PACKET PO PRN (08:41)
[2018-02-03 19:39] VITALS: BP 133/76
[2018-02-03] MEDS: PROMETHAZINE 25MG TABLET PO PRN (21:17)
[2018-02-03] MEDS: BENZTROPINE 1 MG TABLET PO SCH (21:18)
[2018-02-03] MEDS: TRAZODONE 100MG TABLET PO SCH (22:30)
[2018-02-04] MEDS: HYDROcodone/APAP 10/325 MG TABLET PO PRN ×4 (00:07→17:31)
[2018-02-04] MEDS: LEVOTHYROXINE 50 MCG TABLET PO SCH (06:00)
[2018-02-04] MEDS: ASPIRIN 81 MG TABLET EC PO SCH (06:18)
[2018-02-04] MEDS: PANTOPROZOLE 40MG TABLET PO SCH (07:32)
[2018-02-04] MEDS: INSULIN LISPRO 100 UNITS/ML, PEN SQ-INSULIN SCH ×4 (07:32→21:11)
[2018-02-04] MEDS: hydrOXyzine 50MG TABLET PO SCH ×3 (07:32→21:10)
[2018-02-04] MEDS: PROMETHAZINE 25MG TABLET PO PRN ×2 (07:35→21:20)
[2018-02-04 07:55] VITALS: BP 158/84
[2018-02-04] MEDS: SENNA/DOCUSATE TABLET PO SCH (08:44)
[2018-02-04] MEDS: ZIPRASIDONE 40MG CAPSULE PO SCH ×2 (08:44→21:10)
[2018-02-04] MEDS: CETIRIZINE 10 MG TABLET PO SCH (08:45)
[2018-02-04] MEDS: DOCUSATE 100 MG CAPSULE PO SCH (08:45)
[2018-02-04] MEDS: BUSPIRONE 10 MG TABLET PO SCH ×2 (08:45→21:10)
[2018-02-04] MEDS: AMLODIPINE 5 MG TABLET PO SCH (08:45)
[2018-02-04] MEDS: POLYETHYLENE GLYCOL 17 GM PACKET PO PRN (08:48)
[2018-02-04] MEDS: ONDANSETRON ODT 4 MG PO PRN (11:50)
[2018-02-04 19:54] VITALS: BP 145/73
[2018-02-04] MEDS: BENZTROPINE 1 MG TABLET PO SCH (21:10)
[2018-02-04] MEDS: TRAZODONE 100MG TABLET PO SCH (22:31)
[2018-02-05] MEDS: HYDROcodone/APAP 10/325 MG TABLET PO PRN ×4 (00:08→19:27)
[2018-02-05] MEDS: ASPIRIN 81 MG TABLET EC PO SCH (06:18)
[2018-02-05] MEDS: LEVOTHYROXINE 50 MCG TABLET PO SCH (06:18)
[2018-02-05] MEDS: INSULIN LISPRO 100 UNITS/ML, PEN SQ-INSULIN SCH ×4 (07:43→21:00)
[2018-02-05 08:00] VITALS: BP 149/80
[2018-02-05] MEDS: PANTOPROZOLE 40MG TABLET PO SCH (08:09)
[2018-02-05] MEDS: SENNA/DOCUSATE TABLET PO SCH (08:09)
[2018-02-05] MEDS: AMLODIPINE 5 MG TABLET PO SCH (08:10)
[2018-02-05] MEDS: BUSPIRONE 10 MG TABLET PO SCH ×2 (08:10→21:39)
[2018-02-05] MEDS: hydrOXyzine 50MG TABLET PO SCH ×3 (08:10→19:27)
[2018-02-05] MEDS: DOCUSATE 100 MG CAPSULE PO SCH (08:10)
[2018-02-05] MEDS: CETIRIZINE 10 MG TABLET PO SCH (08:10)
[2018-02-05] MEDS: ZIPRASIDONE 40MG CAPSULE PO SCH ×2 (08:10→21:41)
[2018-02-05] MEDS: PROMETHAZINE 25MG TABLET PO PRN ×2 (11:20→17:22)
[2018-02-05] MEDS: POLYETHYLENE GLYCOL 17 GM PACKET PO PRN (11:54)
[2018-02-05 19:14] VITALS: BP 142/90
[2018-02-05 19:21] VITALS: BP 121/77
[2018-02-05] MEDS: BENZTROPINE 1 MG TABLET PO SCH (21:40)
[2018-02-05] MEDS: TRAZODONE 100MG TABLET PO SCH (21:41)
[2018-02-06] MEDS: HYDROcodone/APAP 10/325 MG TABLET PO PRN ×4 (01:40→20:20)
[2018-02-06] MEDS: ACETAMINOPHEN 325 MG TABLET PO PRN ×2 (05:29→05:44)
[2018-02-06] MEDS: LEVOTHYROXINE 50 MCG TABLET PO SCH (06:00)
[2018-02-06] MEDS: ASPIRIN 81 MG TABLET EC PO SCH (06:22)
[2018-02-06 07:30] VITALS: BP 122/64
[2018-02-06] MEDS: INSULIN LISPRO 100 UNITS/ML, PEN SQ-INSULIN SCH ×4 (08:00→20:14)
[2018-02-06] MEDS: ZIPRASIDONE 40MG CAPSULE PO SCH ×2 (08:01→20:19)
[2018-02-06] MEDS: DOCUSATE 100 MG CAPSULE PO SCH (08:01)
[2018-02-06] MEDS: CETIRIZINE 10 MG TABLET PO SCH (08:02)
[2018-02-06] MEDS: PANTOPROZOLE 40MG TABLET PO SCH (08:02)
[2018-02-06] MEDS: SENNA/DOCUSATE TABLET PO SCH (08:02)
[2018-02-06] MEDS: hydrOXyzine 50MG TABLET PO SCH ×3 (08:02→20:20)
[2018-02-06] MEDS: AMLODIPINE 5 MG TABLET PO SCH (08:02)
[2018-02-06] MEDS: PROMETHAZINE 25MG TABLET PO PRN ×2 (08:02→14:07)
[2018-02-06] MEDS: BUSPIRONE 10 MG TABLET PO SCH ×2 (08:02→20:20)
[2018-02-06] MEDS: POLYETHYLENE GLYCOL 17 GM PACKET PO PRN ×2 (12:07→20:27)
[2018-02-06] MEDS: ONDANSETRON ODT 4 MG PO PRN ×2 (12:32→20:20)
[2018-02-06 19:33] VITALS: BP 122/66
[2018-02-06] MEDS: BENZTROPINE 1 MG TABLET PO SCH (20:20)
[2018-02-06] MEDS: TRAZODONE 100MG TABLET PO SCH ×3 (21:00→23:16)
[2018-02-07] MEDS: HYDROcodone/APAP 10/325 MG TABLET PO PRN ×3 (06:26→19:34)
[2018-02-07] MEDS: INSULIN LISPRO 100 UNITS/ML, PEN SQ-INSULIN SCH (07:00)
[2018-02-07] MEDS: LEVOTHYROXINE 50 MCG TABLET PO SCH (07:30)
[2018-02-07] MEDS: PANTOPROZOLE 40MG TABLET PO SCH (07:41)
[2018-02-07] MEDS: ASPIRIN 81 MG TABLET EC PO SCH (07:43)
[2018-02-07] MEDS: ONDANSETRON ODT 4 MG PO PRN ×2 (07:43→16:38)
[2018-02-07] MEDS: hydrOXyzine 50MG TABLET PO SCH ×3 (07:44→20:22)
[2018-02-07 08:19] VITALS: BP 144/77
[2018-02-07] MEDS: CETIRIZINE 10 MG TABLET PO SCH (09:31)
[2018-02-07] MEDS: AMLODIPINE 5 MG TABLET PO SCH (09:31)
[2018-02-07] MEDS: SENNA/DOCUSATE TABLET PO SCH (09:31)
[2018-02-07] MEDS: POLYETHYLENE GLYCOL 17 GM PACKET PO PRN (09:31)
[2018-02-07] MEDS: BUSPIRONE 10 MG TABLET PO SCH ×2 (09:31→20:22)
[2018-02-07] MEDS: ZIPRASIDONE 40MG CAPSULE PO SCH ×2 (09:32→20:22)
[2018-02-07] MEDS: DOCUSATE 100 MG CAPSULE PO SCH (09:32)
[2018-02-07] MEDS: PROMETHAZINE 25MG TABLET PO PRN ×2 (11:58→20:22)
[2018-02-07 19:52] VITALS: BP 148/73
[2018-02-07] MEDS: BENZTROPINE 1 MG TABLET PO SCH (20:22)
[2018-02-07] MEDS: TRAZODONE 100MG TABLET PO SCH (22:22)
[2018-02-08] MEDS: HYDROcodone/APAP 10/325 MG TABLET PO PRN ×4 (01:42→21:32)
[2018-02-08] MEDS: ONDANSETRON ODT 4 MG PO PRN ×3 (01:42→16:18)
[2018-02-08] MEDS: LEVOTHYROXINE 50 MCG TABLET PO SCH (07:29)
[2018-02-08] MEDS: PANTOPROZOLE 40MG TABLET PO SCH (07:29)
[2018-02-08 07:30] VITALS: BP 144/84
[2018-02-08] MEDS: ZIPRASIDONE 40MG CAPSULE PO SCH ×2 (08:49→20:43)
[2018-02-08] MEDS: CETIRIZINE 10 MG TABLET PO SCH (08:50)
[2018-02-08] MEDS: DOCUSATE 100 MG CAPSULE PO SCH (08:50)
[2018-02-08] MEDS: BUSPIRONE 10 MG TABLET PO SCH ×2 (08:50→20:42)
[2018-02-08] MEDS: ASPIRIN 81 MG TABLET EC PO SCH (08:50)
[2018-02-08] MEDS: hydrOXyzine 50MG TABLET PO SCH ×3 (08:50→20:43)
[2018-02-08] MEDS: AMLODIPINE 5 MG TABLET PO SCH (08:51)
[2018-02-08] MEDS: SENNA/DOCUSATE TABLET PO SCH (08:51)
[2018-02-08] MEDS: PROMETHAZINE 25MG TABLET PO PRN ×2 (11:39→19:59)
[2018-02-08 19:48] VITALS: BP 120/70
[2018-02-08] MEDS: BENZTROPINE 1 MG TABLET PO SCH (20:42)
[2018-02-08] MEDS: POLYETHYLENE GLYCOL 17 GM PACKET PO PRN (20:43)
[2018-02-08] MEDS: TRAZODONE 100MG TABLET PO SCH (22:33)
[2018-02-09] MEDS: ASPIRIN 81 MG TABLET EC PO SCH (05:08)
[2018-02-09] MEDS: LEVOTHYROXINE 50 MCG TABLET PO SCH (05:08)
[2018-02-09] MEDS: HYDROcodone/APAP 10/325 MG TABLET PO PRN ×4 (05:08→23:54)
[2018-02-09 07:16] VITALS: BP 142/76
[2018-02-09] MEDS: ONDANSETRON ODT 4 MG PO PRN ×3 (07:49→20:03)
[2018-02-09] MEDS: PANTOPROZOLE 40MG TABLET PO SCH (07:49)
[2018-02-09] MEDS: BUSPIRONE 10 MG TABLET PO SCH ×2 (08:39→20:03)
[2018-02-09] MEDS: ZIPRASIDONE 40MG CAPSULE PO SCH ×2 (08:39→20:03)
[2018-02-09] MEDS: hydrOXyzine 50MG TABLET PO SCH ×3 (08:39→20:03)
[2018-02-09] MEDS: DOCUSATE 100 MG CAPSULE PO SCH (08:39)
[2018-02-09] MEDS: AMLODIPINE 5 MG TABLET PO SCH (08:39)
[2018-02-09] MEDS: CETIRIZINE 10 MG TABLET PO SCH (08:40)
[2018-02-09] MEDS: SENNA/DOCUSATE TABLET PO SCH (08:40)
[2018-02-09] MEDS: PROMETHAZINE 25MG TABLET PO PRN ×2 (11:36→17:41)
[2018-02-09 19:51] VITALS: BP 124/70
[2018-02-09] MEDS: BENZTROPINE 1 MG TABLET PO SCH (20:03)
[2018-02-09] MEDS: TRAZODONE 100MG TABLET PO SCH (22:35)
[2018-02-10] MEDS: LEVOTHYROXINE 50 MCG TABLET PO SCH (06:06)
[2018-02-10] MEDS: HYDROcodone/APAP 10/325 MG TABLET PO PRN ×3 (06:06→18:36)
[2018-02-10] MEDS: ASPIRIN 81 MG TABLET EC PO SCH (06:06)
[2018-02-10] MEDS: PANTOPROZOLE 40MG TABLET PO SCH (07:33)
[2018-02-10] MEDS: ONDANSETRON ODT 4 MG PO PRN ×3 (07:34→22:59)
[2018-02-10] MEDS: DOCUSATE 100 MG CAPSULE PO SCH (08:30)
[2018-02-10] MEDS: hydrOXyzine 50MG TABLET PO SCH ×3 (08:30→21:01)
[2018-02-10] MEDS: BUSPIRONE 10 MG TABLET PO SCH ×2 (08:30→21:01)
[2018-02-10] MEDS: ZIPRASIDONE 40MG CAPSULE PO SCH ×2 (08:31→21:01)
[2018-02-10] MEDS: AMLODIPINE 5 MG TABLET PO SCH (08:31)
[2018-02-10] MEDS: CETIRIZINE 10 MG TABLET PO SCH (08:31)
[2018-02-10] MEDS: SENNA/DOCUSATE TABLET PO SCH (08:31)
[2018-02-10] MEDS: PROMETHAZINE 25MG TABLET PO PRN ×2 (10:15→16:57)
[2018-02-10] MEDS ORDERED: ZIPR40CA2 PO ×2 (17:39)
[2018-02-10 19:41] VITALS: BP 135/75
[2018-02-10] MEDS: BENZTROPINE 1 MG TABLET PO SCH (21:01)
[2018-02-10] MEDS: TRAZODONE 100MG TABLET PO SCH (22:29)
[2018-02-11] MEDS: HYDROcodone/APAP 10/325 MG TABLET PO PRN ×2 (01:09→07:28)
[2018-02-11] MEDS: LEVOTHYROXINE 50 MCG TABLET PO SCH (05:54)
[2018-02-11] MEDS: ASPIRIN 81 MG TABLET EC PO SCH (05:54)
[2018-02-11] MEDS: PANTOPROZOLE 40MG TABLET PO SCH (07:28)
[2018-02-11] MEDS: PROMETHAZINE 25MG TABLET PO PRN (07:28)
[2018-02-11 07:30] VITALS: BP 112/71
[2018-02-11] MEDS: BUSPIRONE 10 MG TABLET PO SCH (08:44)
[2018-02-11] MEDS: DOCUSATE 100 MG CAPSULE PO SCH (08:44)
[2018-02-11] MEDS: hydrOXyzine 50MG TABLET PO SCH (08:44)
[2018-02-11] MEDS: AMLODIPINE 5 MG TABLET PO SCH (08:45)
[2018-02-11] MEDS: ZIPRASIDONE 40MG CAPSULE PO SCH (08:45)
[2018-02-11] MEDS: SENNA/DOCUSATE TABLET PO SCH (08:45)
[2018-02-11] MEDS: CETIRIZINE 10 MG TABLET PO SCH (08:45)
[2018-02-11] MEDS: ONDANSETRON ODT 4 MG PO PRN (12:02)
== END 2018-02-11 14:00 | disposition home or self-care (01) | DRG 885 ==
LOC: 3E 10:53
PROVIDERS: ADMIT Psychiatry & Neurology Psychosomatic Medicine; ATTEND Psychiatry & Neurology Psychosomatic Medicine
DX: F25.1 Schizoaffective disorder, depressive type (principal); E43 Unspecified severe protein-calorie malnutrition; R45.851 Suicidal ideations; F11.20 Opioid dependence, uncomplicated; K86.3 Pseudocyst of pancreas; F32.9 Major depressive disorder, single episode, unspecified; E11.9 Type 2 diabetes mellitus without complications; I10 Essential (primary) hypertension; Z95.0 Presence of cardiac pacemaker; K59.09 Other constipation; E03.9 Hypothyroidism, unspecified; F41.1 Generalized anxiety disorder; G47.00 Insomnia, unspecified; K21.9 Gastro-esophageal reflux disease without esophagitis; R45.850 Homicidal ideations; Z87.11 Personal history of peptic ulcer disease; Z91.5 Personal history of self-harm; Z88.2 Allergy status to sulfonamides; B18.2 Chronic viral hepatitis C; Z79.899 Other long term (current) drug therapy; Z98.84 Bariatric surgery status; Z90.49 Acquired absence of other specified parts of digestive tract; Z82.5 Family history of asthma and other chronic lower respiratory diseases; Z82.49 Family history of ischemic heart disease and other diseases of the circulatory system; Z68.23 Body mass index [BMI] 23.0-23.9, adult; Z23 Encounter for immunization
CPT/HCPCS: 36415; 71045; 74018; 80048; 80061; 82140; 82607; 82962; 83735; 84439; 84443; 85025; 85651; 86592; 90656; 93005; J2550; Q0162; Q0169; J1815

== ENCOUNTER 2018-02-16 01:02 | Inpatient (IN) | payer MEDICARE, MEDICAID ==
[~2018-02-16] VITALS: Ht 154.9 cm; Wt 52.5 kg
[~2018-02-16 01:02] MED LIST changes: +ZIPR40CA2 PO
[2018-02-16 01:03] LABS: ALANINE AMINOTRANSFERASE 20 U/L (12-78); ALBUMIN 3.5 g/dL (3.4-5.0); ANION GAP 11 mmol/L (5-15); CALCIUM 9.3 mg/dL (8.5-10.1); CHLORIDE 110 mmol/L (98-107); CREATININE 1.34 mg/dL (0.55-1.02)
[2018-02-16 01:06] LABS: ACETAMINOPHEN < 2 mcg/mL (10-30); SALICYLATE LEVEL < 1.7 mg/dL (2.8-20.0)
[2018-02-16 01:11] LABS: ALKALINE PHOSPHATASE 152 U/L (45-117); BILIRUBIN,TOTAL 0.5 mg/dL (0.2-1.0); T4 (THYROXINE) 9.9 mcg/dL (4.8-13.9); THYROID STIMULATING HORMONE 0.474 mIU/L (0.358-3.740); TOTAL PROTEIN 8.2 g/dL (6.4-8.2)
[2018-02-16 01:14] LABS: AMPHETAMINE SCREEN, URINE Negative (Negative); BARBITURATE SCREEN, URINE Negative (Negative); BENZODIAZEPINE SCREEN, URINE Negative (Negative); CANNABINOID SCREEN, URINE Positive (Negative); COCAINE SCREEN, URINE Negative (Negative); METHADONE SCREEN, URINE Negative (Negative); OPIATE SCREEN, URINE Positive (Negative)
[2018-02-16] MEDS ORDERED: LIDOCAINE-MPF 1%, 5ML ONE (01:25)
[2018-02-16] MEDS ORDERED: KETAMINE 50 MG/ML, 10ML ONE (01:25)
[2018-02-16 01:30] LABS: INTERNATIONAL NORMALIZED RATIO 1.04 (0.93-1.1); PROTHROMBIN TIME 10.8 Seconds (9.6-11.5)
[2018-02-16] MEDS ORDERED: KETAMINE 100 MG/ML, 5ML IV ONE (01:30)
[2018-02-16] MEDS ORDERED: SODIUM CHLORIDE 0.9% 1,000ML IVBOLUS ONE ×2 (01:30→02:00)
[2018-02-16 01:41] LABS: MEAN CORPUSCULAR HEMOGLOBIN 30.3 pg (27.0-34.8); MEAN CORPUSCULAR HGB CONC 33.5 g/dL (32.4-35.8); MEAN CORPUSCULAR VOLUME 90.5 fL (80-100); MEAN PLATELET VOLUME 6.5 fL (7.4-10.4); PLATELET COUNT 376 x10^3/uL (130-400); RED BLOOD COUNT 4.89 x10^6/uL (3.82-5.3); RED CELL DISTRIBUTION WIDTH 15.3 % (9.6-15.2)
[2018-02-16 01:56] LABS: MD YES
[2018-02-16 01:59] LABS: <PLATELET ESTIMATE> ADEQUATE; <PLT MORPHOLOGY> NORMAL PLT MORPH; <RBC MORPHOLOGY> NORMAL; BAND#(MANUAL) 2.03 x10^3/uL; BANDS%(MANUAL) 6 % (0-7); LYMPH#(MANUAL) 0.34 x10^3/uL (1-3.4); LYMPHS% (MANUAL) 1 % (22-44); MONOS#(MANUAL) 2.03 x10^3/uL (0.3-2.7); MONOS% (MANUAL) 6 % (2-9); SEG#(MANUAL) 29.49 x10^3/uL (1.8-6.8); SEGS% (MANUAL) 87 % (42-75)
[2018-02-16 01:59] LABS: CULTURE INDICATED? NO; MICROSCOPIC NOT IND
[2018-02-16 02:31] LABS: GLUCOSE, CSF 96 mg/dL (40-80); TOTAL PROTEIN,CSF 38 mg/dL (15-45)
[2018-02-16 04:02] VITALS: BP 134/94
[2018-02-16] MEDS ORDERED: NS + 20MEQ KCL 1,000 ML IV SCH (05:54)
[2018-02-16] MEDS ORDERED: ACETAMINOPHEN 325 MG TABLET PO PRN (06:00)
[2018-02-16] MEDS ORDERED: POLYETHYLENE GLYCOL 17 GM PACKET PO PRN (06:00)
[2018-02-16] MEDS ORDERED: CEFTRIAXONE PMX 1GM/50ML 50 ML IV SCH (06:00)
[2018-02-16] MEDS ORDERED: TEMPLATE NON-FORMULARY MED. (Albuterol Sulfate (Proair Hfa) 90 MCG) INH SCH (06:00)
[2018-02-16] MEDS ORDERED: DOCUSATE 100 MG CAPSULE PO PRN (06:00)
[2018-02-16] MEDS: ENOXAPARIN 40 MG/0.4 ML SQ SCH (06:24)
[2018-02-16] MEDS: ACETAMINOPHEN 325 MG TABLET PO PRN ×2 (06:24→15:07)
[2018-02-16 07:51] VITALS: BP 114/74
[2018-02-16] MEDS: DICLOFENAC SODIUM TP SCH ×2 (09:00→20:14)
[2018-02-16] MEDS: DOCUSATE 100 MG CAPSULE PO SCH (10:02)
[2018-02-16] MEDS: LEVOTHYROXINE 50 MCG TABLET PO SCH (10:02)
[2018-02-16] MEDS: SENNA/DOCUSATE TABLET PO SCH (10:03)
[2018-02-16] MEDS: CETIRIZINE 10 MG TABLET PO SCH (10:03)
[2018-02-16] MEDS: AMLODIPINE 5 MG TABLET PO SCH (10:03)
[2018-02-16] MEDS: ONDANSETRON 2MG/ML, 2ML IVPush PRN ×2 (11:05→21:13)
[2018-02-16] MEDS ORDERED: FAMOTIDINE 20 MG/2 ML IVPush SCH (12:00)
[2018-02-16] MEDS ORDERED: LORazepam 2 MG/ML, 1ML IVPush PRN (12:00)
[2018-02-16 12:37] LABS: MD YES; MEAN CORPUSCULAR HEMOGLOBIN 29.7 pg (27.0-34.8); MEAN CORPUSCULAR VOLUME 90.2 fL (80-100); MEAN PLATELET VOLUME 6.3 fL (7.4-10.4); PLATELET COUNT 327 x10^3/uL (130-400); RED BLOOD COUNT 4.12 x10^6/uL (3.82-5.3); RED CELL DISTRIBUTION WIDTH 14.5 % (9.6-15.2)
[2018-02-16 12:54] LABS: <RBC MORPHOLOGY> NORMAL; BAND#(MANUAL) 0.33 x10^3/uL; BANDS%(MANUAL) 1 % (0-7); LYMPH#(MANUAL) 2.28 x10^3/uL (1-3.4); LYMPHS% (MANUAL) 7 % (22-44); MONOS#(MANUAL) 2.28 x10^3/uL (0.3-2.7); MONOS% (MANUAL) 7 % (2-9); SEG#(MANUAL) 27.63 x10^3/uL (1.8-6.8); SEGS% (MANUAL) 85 % (42-75)
[2018-02-16 12:55] LABS: <PLATELET ESTIMATE> ADEQUATE; <PLT MORPHOLOGY> NORMAL PLT MORPH
[2018-02-16 14:00] VITALS: BP 137/55
[2018-02-16] MEDS ORDERED: HYDROcodone/APAP 5/325 TABLET PO ONE (16:30)
[2018-02-16] MEDS: AZITHROMYCIN 500 MG in SODIUM CHLORIDE 0.9% 250 ML IV SCH (20:14)
[2018-02-16] MEDS: FAMOTIDINE 20 MG TABLET PO SCH (20:14)
[2018-02-16 21:10] VITALS: BP 165/58
[2018-02-16] MEDS ORDERED: HYDROcodone/APAP 10/325 MG TABLET PO ONE (22:30)
[2018-02-17 01:59] VITALS: BP 134/70
[2018-02-17] MEDS ORDERED: HYDROcodone/APAP 10/325 MG TABLET PO ONE (04:45)
[2018-02-17] MEDS: ENOXAPARIN 40 MG/0.4 ML SQ SCH (05:50)
[2018-02-17 06:01] LABS: MEAN CORPUSCULAR HEMOGLOBIN 30.3 pg (27.0-34.8); MEAN CORPUSCULAR HGB CONC 33.7 g/dL (32.4-35.8); MEAN PLATELET VOLUME 6.5 fL (7.4-10.4); PLATELET COUNT 310 x10^3/uL (130-400); RED BLOOD COUNT 4.11 x10^6/uL (3.82-5.3); RED CELL DISTRIBUTION WIDTH 14.8 % (9.6-15.2)
[2018-02-17 06:25] LABS: CHLORIDE 107 mmol/L (98-107)
[2018-02-17 06:34] LABS: ANION GAP 12 mmol/L (5-15); CALCIUM 8.1 mg/dL (8.5-10.1); CREATININE 0.52 mg/dL (0.55-1.02)
[2018-02-17 06:38] LABS: MD YES
[2018-02-17 06:40] LABS: <PLATELET ESTIMATE> ADEQUATE; <PLT MORPHOLOGY> NORMAL PLT MORPH; <RBC MORPHOLOGY> NORMAL; BAND#(MANUAL) 0.44 x10^3/uL; BANDS%(MANUAL) 2 % (0-7); BASOS#(MANUAL) 0.22 x10^3/uL (0-0.1); BASOS% (MANUAL) 1 % (0-1); EOS#(MANUAL) 0.22 x10^3/uL (0.0-0.4); EOS% (MANUAL) 1 % (1-7); LYMPH#(MANUAL) 0.88 x10^3/uL (1-3.4); LYMPHS% (MANUAL) 4 % (22-44); MONOS#(MANUAL) 1.76 x10^3/uL (0.3-2.7); MONOS% (MANUAL) 8 % (2-9); SEG#(MANUAL) 18.48 x10^3/uL (1.8-6.8); SEGS% (MANUAL) 84 % (42-75)
[2018-02-17 08:26] VITALS: BP 156/68
[2018-02-17] MEDS: CEFTRIAXONE PMX 1GM/50ML 50 ML IV SCH (08:37)
[2018-02-17] MEDS: LEVOTHYROXINE 50 MCG TABLET PO SCH (08:37)
[2018-02-17] MEDS: SENNA/DOCUSATE TABLET PO SCH (08:38)
[2018-02-17] MEDS: DOCUSATE 100 MG CAPSULE PO SCH (08:38)
[2018-02-17] MEDS: ONDANSETRON 2MG/ML, 2ML IVPush PRN ×2 (08:38→16:46)
[2018-02-17] MEDS: AMLODIPINE 5 MG TABLET PO SCH (08:38)
[2018-02-17] MEDS: FAMOTIDINE 20 MG TABLET PO SCH ×2 (08:38→21:09)
[2018-02-17] MEDS: CETIRIZINE 10 MG TABLET PO SCH (08:38)
[2018-02-17] MEDS: DICLOFENAC SODIUM TP SCH ×2 (08:39→21:00)
[2018-02-17] MEDS ORDERED: ALBUTEROL SULFATE 2.5 MG/3 ML NPPB PRN (09:30)
[2018-02-17] MEDS: HYDROcodone/APAP 10/325 MG TABLET PO PRN ×2 (11:24→17:46)
[2018-02-17 12:04] VITALS: BP 152/71
[2018-02-17 18:31] VITALS: BP 140/65
[2018-02-17] MEDS ORDERED: MAGNESIUM OXIDE 400 MG TABLET PO ONE (21:00)
[2018-02-17] MEDS ORDERED: TRAZODONE 100MG TABLET PO SCH (21:00)
[2018-02-17] MEDS ORDERED: ZIPRASIDONE 40MG CAPSULE PO SCH (21:00)
[2018-02-17] MEDS: AZITHROMYCIN 500 MG in SODIUM CHLORIDE 0.9% 250 ML IV SCH (21:08)
[2018-02-17] MEDS: ZIPRASIDONE 40MG CAPSULE PO SCH (21:09)
[2018-02-18] VITALS: BP 129/60
[2018-02-18] MEDS: HYDROcodone/APAP 10/325 MG TABLET PO PRN ×3 (00:07→12:14)
[2018-02-18 00:41] VITALS: BP 105/60
[2018-02-18] MEDS: LEVOTHYROXINE 50 MCG TABLET PO SCH (06:08)
[2018-02-18] MEDS: ENOXAPARIN 40 MG/0.4 ML SQ SCH (06:08)
[2018-02-18 07:19] LABS: MEAN CORPUSCULAR HEMOGLOBIN 29.8 pg (27.0-34.8); MEAN CORPUSCULAR HGB CONC 33.4 g/dL (32.4-35.8); MEAN CORPUSCULAR VOLUME 89.2 fL (80-100); MEAN PLATELET VOLUME 5.9 fL (7.4-10.4); PLATELET COUNT 351 x10^3/uL (130-400); RED BLOOD COUNT 4.32 x10^6/uL (3.82-5.3); RED CELL DISTRIBUTION WIDTH 14.4 % (9.6-15.2)
[2018-02-18 07:29] LABS: ANION GAP 11 mmol/L (5-15); CALCIUM 8.6 mg/dL (8.5-10.1); CHLORIDE 106 mmol/L (98-107)
[2018-02-18 07:30] LABS: CREATININE 0.42 mg/dL (0.55-1.02)
[2018-02-18 07:35] LABS: BASOPHILS # (AUTO) 0.02 x10^3/uL (0-0.1); BASOPHILS % (AUTO) 0 % (0-1); EOSINOPHILS # (AUTO) 0.21 x10^3/uL (0-0.4); EOSINOPHILS % (AUTO) 2 % (1-7); LYMPHOCYTES # (AUTO) 1.57 x10^3/uL (1-3.4); LYMPHOCYTES % (AUTO) 15 % (22-44); MD SCAN; MONOCYTES # (AUTO) 0.85 x10^3/uL (0.2-0.8); MONOCYTES % (AUTO) 8 % (2-9); NEUTROPHILS # (AUTO) 8.16 x10^3/uL (1.8-6.8); NEUTROPHILS % (AUTO) 76 % (42-75)
[2018-02-18] MEDS: ZIPRASIDONE 40MG CAPSULE PO SCH (08:24)
[2018-02-18] MEDS: AMLODIPINE 5 MG TABLET PO SCH (08:24)
[2018-02-18] MEDS: CETIRIZINE 10 MG TABLET PO SCH (08:24)
[2018-02-18] MEDS: FAMOTIDINE 20 MG TABLET PO SCH (08:24)
[2018-02-18] MEDS: DOCUSATE 100 MG CAPSULE PO SCH (08:24)
[2018-02-18] MEDS: ONDANSETRON 2MG/ML, 2ML IVPush PRN (08:25)
[2018-02-18] MEDS: SENNA/DOCUSATE TABLET PO SCH (08:25)
[2018-02-18 08:27] VITALS: BP 123/70
[2018-02-18] MEDS: DICLOFENAC SODIUM TP SCH (09:00)
[2018-02-18] MEDS ORDERED: FLUTICASONE/VILANTEROL 100-25MCG/INH INH SCH (09:00)
[2018-02-18] MEDS: CEFTRIAXONE PMX 1GM/50ML 50 ML IV SCH (09:42)
[2018-02-18] MEDS ORDERED: AZIT500T5 PO (09:47)
[2018-02-18] MEDS ORDERED: ZIPR40CA2 PO (09:47)
[2018-02-18] MEDS ORDERED: CEFD300C37 PO (09:47)
[2018-02-18] MEDS ORDERED: POTASSIUM CHLORIDE 20 MEQ TAB.ER.PRT PO ONE (10:00)
[2018-02-18 12:09] VITALS: BP 135/75
[2018-02-18] MEDS ORDERED: MAGN400T36 PO (16:45)
== END 2018-02-18 14:35 | disposition home or self-care (01) | DRG 871 ==
LOC: ED 01:09 → EDIP 02:59 → 4EST 03:40 → DCLOUNGE 02-18 14:23
PROVIDERS: ADMIT Family Medicine; ATTEND Family Medicine
PROC: 009U3ZX Drainage of Spinal Canal, Percutaneous Approach, Diagnostic (ICD-10-PCS; principal; 2018-02-16)
PROC: 0T9B70Z Drainage of Bladder with Drainage Device, Via Natural or Artificial Opening (ICD-10-PCS; 2018-02-16)
DX: A41.9 Sepsis, unspecified organism (principal); J18.9 Pneumonia, unspecified organism; G93.41 Metabolic encephalopathy; E43 Unspecified severe protein-calorie malnutrition; J44.0 Chronic obstructive pulmonary disease with (acute) lower respiratory infection; K86.3 Pseudocyst of pancreas; E03.9 Hypothyroidism, unspecified; E11.9 Type 2 diabetes mellitus without complications; E86.0 Dehydration; F25.9 Schizoaffective disorder, unspecified; G89.29 Other chronic pain; M54.9 Dorsalgia, unspecified; F32.9 Major depressive disorder, single episode, unspecified; I11.9 Hypertensive heart disease without heart failure; K21.9 Gastro-esophageal reflux disease without esophagitis; Z87.11 Personal history of peptic ulcer disease; Z95.0 Presence of cardiac pacemaker; Z98.84 Bariatric surgery status; Z91.5 Personal history of self-harm; Z90.49 Acquired absence of other specified parts of digestive tract; Z88.2 Allergy status to sulfonamides; Z68.21 Body mass index [BMI] 21.0-21.9, adult
CPT/HCPCS: 36415; 70450; 71045; 74177; 80048; 80053; 80307; 80329; 81003; 82140; 82945; 83735; 84157; 84436; 84443; 85025; 85610; 85730; 87040; 87046; 87070; 87205; 87252; 87427; 89051; 89055; 93005; 96361; 96374; 99285; G0378; J0456; J0696; J1650; J2405; J3480; G0480; J3490; J7030; J7050

== ENCOUNTER → 2018-07-18 | Outpatient (CLI) | payer MEDICARE, MEDICAID ==
[~2018-07-18] MED LIST changes: +AMLO-150 PO; -AMLO5TAB7 PO; +AZIT500T5 PO; +CEFD300C37 PO; +LOSA50TA14 PO; -LOSA50TA7 PO; +MAGN400T36 PO
== END | disposition home or self-care (01) ==
LOC: RAD 08:05
PROVIDERS: ATTEND Nurse Practitioner Family
DX: K21.9 Gastro-esophageal reflux disease without esophagitis (principal); K28.9 Gastrojejunal ulcer, unspecified as acute or chronic, without hemorrhage or perforation; Z88.2 Allergy status to sulfonamides; Z88.8 Allergy status to other drugs, medicaments and biological substances; Z90.49 Acquired absence of other specified parts of digestive tract; Z98.84 Bariatric surgery status
CPT/HCPCS: 74245

== ENCOUNTER 2018-11-28 15:58 | Emergency (ER) | payer MEDICARE, MEDICAID ==
[~2018-11-28] VITALS: Ht 152.4 cm; Wt 52.3 kg
[2018-11-28 19:15] VITALS: BP 157/80
== END 2018-11-28 20:41 ==
LOC: ED 20:35
DX: F33.2 Major depressive disorder, recurrent severe without psychotic features (principal); E03.9 Hypothyroidism, unspecified; J44.9 Chronic obstructive pulmonary disease, unspecified; I10 Essential (primary) hypertension; F25.9 Schizoaffective disorder, unspecified; I25.2 Old myocardial infarction; E78.5 Hyperlipidemia, unspecified; I11.9 Hypertensive heart disease without heart failure; Z90.49 Acquired absence of other specified parts of digestive tract; Z95.0 Presence of cardiac pacemaker
CPT/HCPCS: 36415; 80053; 80307; 81001; 85025; 87077; 87086; 87186; 93005; 99285

== ENCOUNTER 2019-04-11 15:04 | Emergency (ER) | payer MEDICARE, MEDICAID ==
[~2019-04-11] VITALS: Ht 152.4 cm; Wt 54.0 kg
[~2019-04-11 15:04] MED LIST changes: +ALBU2.5V NEB; +AZEL6DRO2 EACHEYE; +AZIT500T10 PO; -AZIT500T5 PO; +BENZ-17 PO; +CYCL-259 PO; +ESOM40SU PO; +FERR240T2 PO; +FLUT1AER INH; -HYDR-3307 PO; +HYDR-36 PO; +HYDR50CA2 PO; +LACT10SO PO; +LIDO1ADH41 TD; +MAGN400O7 PO; +NALO4SPR NS; +OLAN10VI2 PO; +OXYC1TAB8 PO; +PANT40GR PO; +POLY17PO29 PO; +PROM25TA10 PO; +SUCR1ORA5 PO; +TIZA2TAB2 PO
[2019-04-11 15:09] VITALS: BP 146/75
--- NOTE | 2019-04-11 15:41 | NUR ---
ELAINA. REPORT RECEIVED FROM EMS. PT HAS SI W/O PLANS. DENIES DRUGS/ALCOHOL PER PT. PT'S AOX4. RESPS EVEN AND UNLABORED.
[2019-04-11 16:28] LABS: BASOPHILS # (AUTO) 0.03 x10^3/uL (0-0.1); BASOPHILS % (AUTO) 0 % (0-1); EOSINOPHILS # (AUTO) 0.03 x10^3/uL (0-0.4); EOSINOPHILS % (AUTO) 0 % (1-7); LYMPHOCYTES # (AUTO) 1.43 x10^3/uL (1-3.4); LYMPHOCYTES % (AUTO) 13 % (22-44); MD NO; MEAN CORPUSCULAR HEMOGLOBIN 30.8 pg (27.0-34.8); MEAN CORPUSCULAR HGB CONC 32.9 g/dL (32.4-35.8); MEAN CORPUSCULAR VOLUME 93.7 fL (80-100); MEAN PLATELET VOLUME 6.7 fL (7.4-10.4); MONOCYTES # (AUTO) 1.06 x10^3/uL (0.2-0.8); MONOCYTES % (AUTO) 9 % (2-9); NEUTROPHILS # (AUTO) 8.76 x10^3/uL (1.8-6.8); NEUTROPHILS % (AUTO) 77 % (42-75); PLATELET COUNT 271 x10^3/uL (130-400); RED BLOOD COUNT 4.43 x10^6/uL (3.82-5.3); RED CELL DISTRIBUTION WIDTH 14.9 % (9.6-15.2)
[2019-04-11] MEDS ORDERED: QUETIAPINE 25MG TABLET PO PRN (16:30)
[2019-04-11 17:00] LABS: ALANINE AMINOTRANSFERASE 29 U/L (12-78); ALBUMIN 3.6 g/dL (3.4-5.0); ANION GAP 5 mmol/L (5-15); CALCIUM 8.5 mg/dL (8.5-10.1); CHLORIDE 116 mmol/L (98-107); CREATININE 0.58 mg/dL (0.55-1.02); SALICYLATE LEVEL 2.7 mg/dL (2.8-20.0)
[2019-04-11 17:03] LABS: ALKALINE PHOSPHATASE 154 U/L (45-117); BILIRUBIN,TOTAL 0.2 mg/dL (0.2-1.0); TOTAL PROTEIN 7.1 g/dL (6.4-8.2)
--- NOTE | 2019-04-11 17:08 | NUR ---
PT UP TO BR WITH ASSISTANCE.
--- NOTE | 2019-04-11 17:37 | NUR ---
MEAL TRAY ORDERED AT THIS TIME.
[2019-04-11 17:50] LABS: AMPHETAMINE SCREEN, URINE Negative (Negative); BARBITURATE SCREEN, URINE Negative (Negative); BENZODIAZEPINE SCREEN, URINE Negative (Negative); CANNABINOID SCREEN, URINE Positive (Negative); COCAINE SCREEN, URINE Negative (Negative); METHADONE SCREEN, URINE Negative (Negative); OPIATE SCREEN, URINE Positive (Negative)
--- NOTE | 2019-04-11 17:59 | NUR ---
GATITO RN: packet faxed to GINI, RYLEE, JAI, Senior Jordan, RB & U
--- NOTE | 2019-04-11 18:04 | NUR ---
TP RN: Pt has been accepted by [facility], awaiting [facility] RN to call for report
--- NOTE | 2019-04-11 18:23 | NUR ---
REPORT GIVEN TO HERBERT KHAN. ALL QUESTIONS ANSWERED.
[2019-04-27] MEDS ORDERED: DULO30CA2 PO (15:14)
[2019-04-27] MEDS ORDERED: HYDR50CA2 PO (15:14)
[2019-04-27] MEDS ORDERED: ZIPR40CA2 PO (15:14)
== END 2019-04-11 18:28 ==
LOC: ED 16:59
DX: F23 Brief psychotic disorder (principal); R45.851 Suicidal ideations; I11.9 Hypertensive heart disease without heart failure; K21.9 Gastro-esophageal reflux disease without esophagitis; E78.5 Hyperlipidemia, unspecified; J44.9 Chronic obstructive pulmonary disease, unspecified; I25.2 Old myocardial infarction; F25.9 Schizoaffective disorder, unspecified; F32.9 Major depressive disorder, single episode, unspecified; Z87.891 Personal history of nicotine dependence
CPT/HCPCS: 36415; 80053; 80307; 85025; 99285

== ENCOUNTER 2019-08-17 09:53 | Emergency (ER) | payer MEDICARE, MEDICAID ==
[~2019-08-17] VITALS: Ht 154.9 cm; Wt 56.8 kg
[~2019-08-17 09:53] MED LIST changes: +CLON-364 PO; -CLON0.5T11 PO; +DULO30CA2 PO; +FLUO20CA23 PO; -FLUO20CA8 PO; -HYDR50TA13 PO; +HYDR50TA99 PO; -TRAZ-137 PO; +TRAZ-175 PO
[2019-08-17] MEDS ORDERED: KETOROLAC 30 MG/1 ML ONE (10:25)
[2019-08-17] MEDS ORDERED: KETOROLAC 30 MG/1 ML IM ONE (10:30)
[2019-08-17 10:35] LABS: BASOPHILS # (AUTO) 0.02 x10^3/uL (0-0.1); BASOPHILS % (AUTO) 0 % (0-1); EOSINOPHILS # (AUTO) 0.02 x10^3/uL (0-0.4); EOSINOPHILS % (AUTO) 0 % (1-7); LYMPHOCYTES # (AUTO) 1.74 x10^3/uL (1-3.4); LYMPHOCYTES % (AUTO) 15 % (22-44); MD NO; MEAN CORPUSCULAR HEMOGLOBIN 30.4 pg (27.0-34.8); MEAN CORPUSCULAR VOLUME 92.4 fL (80-100); MEAN PLATELET VOLUME 6.3 fL (7.4-10.4); MONOCYTES # (AUTO) 0.65 x10^3/uL (0.2-0.8); MONOCYTES % (AUTO) 6 % (2-9); NEUTROPHILS # (AUTO) 8.99 x10^3/uL (1.8-6.8); NEUTROPHILS % (AUTO) 79 % (42-75); PLATELET COUNT 376 x10^3/uL (130-400); RED BLOOD COUNT 4.67 x10^6/uL (3.82-5.3); RED CELL DISTRIBUTION WIDTH 14.9 % (9.6-15.2)
[2019-08-17 10:44] LABS: ALBUMIN 3.6 g/dL (3.4-5.0); ANION GAP 4 mmol/L (5-15); CALCIUM 8.8 mg/dL (8.5-10.1); CHLORIDE 107 mmol/L (98-107); CREATININE 0.54 mg/dL (0.55-1.02); SALICYLATE LEVEL 2.3 mg/dL (2.8-20.0)
--- NOTE | 2019-08-17 11:35 | NUR ---
Pt to room 23 per pedbessie with walker. Pt comes per LISA. Pt was at her MD's office today, and expressed feelings of hurting herself by either slicing her wrists or taking a bunch of pills. Pt does not go into why she feels this way. MD called 911 and had her brought to ED. Pt placed in gown, all personal effects removed and labeled. Pt placed on BP, pulse ox. MD in to assess patient. Pt requested pain medications, RN gave IM shot of toradol. Awaiting [employer]ESS OPERATOR from behavioral health to come assess and decide where patient will go.
--- NOTE | 2019-08-17 12:03 | NUR ---
Pt up to commode for UA collection.
--- NOTE | 2019-08-17 13:15 | NUR ---
Lunch tray ordered. Pt sitting in bed watching TV. Sitter at bedside.
[2019-08-17] MEDS ORDERED: HYDROcodone/APAP 5/325 TABLET ONE (13:26)
[2019-08-17] MEDS ORDERED: HYDROcodone/APAP 5/325 TABLET PO ONE (13:30)
[2019-08-17 13:31] LABS: CULTURE INDICATED? NO; MICROSCOPIC NOT IND
[2019-08-17 13:43] LABS: AMPHETAMINE SCREEN, URINE Negative (Negative); BARBITURATE SCREEN, URINE Negative (Negative); BENZODIAZEPINE SCREEN, URINE Negative (Negative); CANNABINOID SCREEN, URINE Positive (Negative); COCAINE SCREEN, URINE Negative (Negative); METHADONE SCREEN, URINE Negative (Negative); OPIATE SCREEN, URINE Positive (Negative)
[2019-08-17] MEDS ORDERED: OLANZAPINE 5 MG TABLET PO SCH (14:00)
[2019-08-17] MEDS ORDERED: hydrOXyzine 50MG TABLET PO PRN (14:00)
[2019-08-17] MEDS ORDERED: TRAZODONE 100MG TABLET PO PRN (14:00)
--- NOTE | 2019-08-17 14:22 | NUR ---
Pt sitting in room eating lunch. PO norco and clonidine given for BP issues. When SBP gets to 160 or lower, pt can go to [facility].
[2019-08-17] MEDS ORDERED: GABAPENTIN 300 MG CAPSULE ONE (15:37)
[2019-08-17] MEDS ORDERED: OLANZAPINE 5 MG TABLET ONE (15:37)
--- NOTE | 2019-08-17 15:45 | NUR ---
pt medicated per emar. pt resting calmly in bed at this time. no c/o pain. will continue to monitor.
[2019-08-17] MEDS ORDERED: GABAPENTIN 300 MG CAPSULE PO SCH (16:00)
[2019-08-17 16:34] VITALS: BP 168/78
--- NOTE | 2019-08-17 16:36 | NUR ---
PT BP IMPROVED, SEE CHARTED. PT RESTING CALMLY IN BED, IS EXCITED TO GO TO [facility] STATED, "LET ME COME HOME!!" [facility] AWARE PT BP HAS IMPROVED, WILL ACCEPT PT.
--- NOTE | 2019-08-17 17:35 | NUR ---
UNABLE TO REACH U AT THIS TIME TO CALL REPORT. WILL TRY AGAIN. PT CONTINUES TO REST CALMLY IN BED. SITTER AT DOOR.
[2019-08-17] MEDS ORDERED: BUSPIRONE 5 MG TABLET PO SCH (21:00)
[2019-08-17] MEDS ORDERED: DONEPEZIL 5 MG TABLET PO SCH (21:00)
[2019-08-17] MEDS ORDERED: BUSPIRONE 10 MG TABLET PO SCH (21:00)
[2019-08-18] MEDS ORDERED: DULOXETINE 30 MG CAPSULE.DR PO SCH (09:00)
== END 2019-08-17 10:05 ==
LOC: ED 10:05
DX: R45.851 Suicidal ideations (principal); F25.9 Schizoaffective disorder, unspecified; I10 Essential (primary) hypertension; E78.5 Hyperlipidemia, unspecified; J44.9 Chronic obstructive pulmonary disease, unspecified; I25.2 Old myocardial infarction; E03.9 Hypothyroidism, unspecified; K21.9 Gastro-esophageal reflux disease without esophagitis; Z90.89 Acquired absence of other organs; Z90.49 Acquired absence of other specified parts of digestive tract; Z95.0 Presence of cardiac pacemaker; Z88.2 Allergy status to sulfonamides
CPT/HCPCS: 36415; 80048; 80307; 81003; 82040; 85025; 96372; 99285; J1885

== ENCOUNTER 2019-11-10 17:08 | Emergency (ER) | payer MEDICARE, MEDICAID ==
[~2019-11-10] VITALS: Ht 152.4 cm; Wt 59.3 kg
[~2019-11-10 17:08] MED LIST changes: +AMLO10TA8 PO; +ASPI81TA45 PO; +HYDR-3246 PO; -HYDR-36 PO; +LOSA25TA25 PO; -PANT40TA5 PO; +PANT40TA6 PO; -TIZA2TAB2 PO; +TIZA2TAB4 PO; +TRAZ150T62 PO
--- NOTE | 2019-11-10 17:31 | NUR ---
Patient presents to ER c/o opening wound with drainage s/p defibrilator placement on 09/29. Patient states the wound opened 2 days ago but became painful this morning with increased drainage. Patient takes [place] 10 q6 hours. Last dose was at 1100 but patient states it is not helping today. Patient is in NAD. Respirations even and unlabored. Wound is on the upper left chest and is approx 3 inches long; reddened edges noted with minimal drainage.
[2019-11-10] MEDS ORDERED: ONDANSETRON ODT 4 MG ONE (17:59)
[2019-11-10] MEDS ORDERED: OXYcodone/APAP 10/325MG TABLET ONE (18:00)
[2019-11-10] MEDS ORDERED: ONDANSETRON ODT 4 MG PO ONE (18:00)
[2019-11-10] MEDS ORDERED: OXYcodone/APAP 10/325MG TABLET PO ONE (18:00)
[2019-11-10 19:06] LABS: MEAN CORPUSCULAR HEMOGLOBIN 29.1 pg (27.0-34.8); MEAN CORPUSCULAR HGB CONC 32.4 g/dL (32.4-35.8); MEAN PLATELET VOLUME 6.4 fL (7.4-10.4); PLATELET COUNT 242 x10^3/uL (130-400); RED BLOOD COUNT 4.59 x10^6/uL (3.82-5.3); RED CELL DISTRIBUTION WIDTH 14.4 % (9.6-15.2)
[2019-11-10 19:18] LABS: ANION GAP 7 mmol/L (5-15); CALCIUM 8.4 mg/dL (8.5-10.1); CHLORIDE 105 mmol/L (98-107)
[2019-11-10 19:19] LABS: CREATININE 0.64 mg/dL (0.55-1.02)
[2019-11-10 19:31] LABS: MD YES
[2019-11-10 19:52] LABS: BAND#(MANUAL) 0.27 x10^3/uL; BANDS%(MANUAL) 2 % (0-7); BASOS#(MANUAL) 0.14 x10^3/uL (0-0.1); BASOS% (MANUAL) 1 % (0-1); LYMPHS% (MANUAL) 8 % (22-44); MONOS#(MANUAL) 0.96 x10^3/uL (0.3-2.7); MONOS% (MANUAL) 7 % (2-9); SEG#(MANUAL) 11.23 x10^3/uL (1.8-6.8); SEGS% (MANUAL) 82 % (42-75)
[2019-11-10 19:53] LABS: <PLATELET ESTIMATE> ADEQUATE; <PLT MORPHOLOGY> NORMAL PLT MORPH; <RBC MORPHOLOGY> NORMAL
[2019-11-10 20:35] VITALS: BP 113/35
--- NOTE | 2019-11-10 21:06 | NUR ---
Discharge instructions given. All questions and concerns addressed. Patient ambulatory with a steady gait. Belongings with patient.
== END 2019-11-10 21:08 | disposition home or self-care (01) ==
LOC: ED 19:48
DX: T81.30XA Disruption of wound, unspecified, initial encounter (principal); L03.313 Cellulitis of chest wall; L76.82 Other postprocedural complications of skin and subcutaneous tissue; I25.2 Old myocardial infarction; J44.9 Chronic obstructive pulmonary disease, unspecified; K21.9 Gastro-esophageal reflux disease without esophagitis; E03.9 Hypothyroidism, unspecified; I10 Essential (primary) hypertension; Y83.8 Other surgical procedures as the cause of abnormal reaction of the patient, or of later complication, without mention of misadventure at the time of the procedure; Z90.49 Acquired absence of other specified parts of digestive tract; Z98.51 Tubal ligation status; Z95.0 Presence of cardiac pacemaker
CPT/HCPCS: 36415; 80048; 85025; 99283; Q0162

== ENCOUNTER 2020-05-15 17:44 | Emergency (ER) | payer MEDICARE, MEDICAID ==
[~2020-05-15] VITALS: Ht 152.4 cm; Wt 50.0 kg
[~2020-05-15 17:44] MED LIST changes: +AMLO-211 PO; -AMLO10TA8 PO; +ASPI-1024 PO; -ASPI-515 PO; +BUSP30TA PO; +CARV6.252 PO; +CHLO10TA2 PO; +CHLO25TA PO; +CHOL10003 PO; -CYCL-259 PO; +CYCL10TA2 PO; +HYDR-3245 PO; -HYDR-3246 PO; +HYDR-3248 PO; -LACT10SO PO; +LACT10SO2 PO; +LEVO88TA4 PO; +METH-639 PO; -METH500T7 PO; +OLAN10TA7 PO; -OXYC-307 PO; +OXYC-380 PO; +TIZA-106 PO; -TIZA2TAB4 PO
[2020-05-15] MEDS ORDERED: ONDANSETRON ODT 4 MG PO ONE (18:00)
[2020-05-15] MEDS ORDERED: HYDROmorphone 2 MG/ML, 1ML IM ONE (18:00)
[2020-05-15] MEDS ORDERED: ONDANSETRON ODT 4 MG ONE (18:06)
[2020-05-15] MEDS ORDERED: HYDROmorphone 1 MG/ML, 1ML INJ ONE (18:07)
[2020-05-15 18:16] LABS: BASOPHILS % (AUTO) 1 % (0-1); EOSINOPHILS % (AUTO) 0 % (1-7); LYMPHOCYTES % (AUTO) 8 % (22-44); MEAN CORPUSCULAR HGB CONC 32.3 g/dL (32.4-35.8); MEAN PLATELET VOLUME 6.8 fL (7.4-10.4); MONOCYTES % (AUTO) 7 % (2-9); NEUTROPHILS % (AUTO) 85 % (42-75); PLATELET COUNT 363 x10^3/uL (130-400); RED CELL DISTRIBUTION WIDTH 16.2 % (9.6-15.2)
[2020-05-15 18:25] LABS: ALANINE AMINOTRANSFERASE 19 U/L (12-78); ALBUMIN 3.8 g/dL (3.4-5.0); ANION GAP 7 mmol/L (5-15); CALCIUM 9.5 mg/dL (8.5-10.1); CHLORIDE 100 mmol/L (98-107)
[2020-05-15 18:28] LABS: ALKALINE PHOSPHATASE 197 U/L (45-117); BILIRUBIN,TOTAL 0.4 mg/dL (0.2-1.0)
[2020-05-15] MEDS ORDERED: OMNIPAQUE 350 MG/ML, 100ML BOTTLE ONE (18:51)
[2020-05-15 19:04] LABS: MD SCAN
--- NOTE | 2020-05-15 19:10 | NUR ---
PT TO CT
--- NOTE | 2020-05-15 19:25 | NUR ---
PT BACK FROM CT. CT NOT PERFORMED D/T NO IV. TECH STATED THEY WERE UNABLE TO PLACE PIV. PIV PLACED AND CT NOTIFIED.
[2020-05-15 19:33] LABS: MICROSCOPIC AUTO
--- NOTE | 2020-05-15 19:50 | NUR ---
PT TO CT
--- NOTE | 2020-05-15 20:10 | NUR ---
PT BACK FROM CT. MONITOR'S IN PLACE.
[2020-05-15] MEDS ORDERED: HYDROcodone/APAP 10/325 MG TABLET ONE (20:36)
[2020-05-15] MEDS ORDERED: HYDROcodone/APAP 10/325 MG TABLET PO ONE (21:00)
--- NOTE | 2020-05-15 21:08 | NUR ---
Patient given discharge instructions and they have confirmed that they understand the instructions. Patient ambulatory with steady gait.
[2020-05-15 21:09] VITALS: BP 149/82
== END 2020-05-15 21:11 | disposition home or self-care (01) ==
LOC: ED 18:31
DX: K86.3 Pseudocyst of pancreas (principal); R10.84 Generalized abdominal pain; R00.0 Tachycardia, unspecified; Z88.2 Allergy status to sulfonamides; Z88.8 Allergy status to other drugs, medicaments and biological substances; I10 Essential (primary) hypertension; E78.5 Hyperlipidemia, unspecified; I25.2 Old myocardial infarction; K21.9 Gastro-esophageal reflux disease without esophagitis; Z87.11 Personal history of peptic ulcer disease
CPT/HCPCS: 36415; 74021; 74177; 80053; 81001; 83690; 85025; 96372; 99285; J1170; Q0162; Q9967

== ENCOUNTER → 2020-06-22 | Outpatient (CLI) | payer MEDICARE, MEDICAID ==
[~2020-06-22] MED LIST changes: -ASPI-1024 PO; +ASPI-963 PO; -HYDR-3245 PO; +HYDR1TAB53 PO; -POLY17PO29 PO; +POLY17PO50 PO
== END | disposition home or self-care (01) ==
LOC: RAD 12:32
PROVIDERS: ATTEND Nurse Practitioner Family
DX: R06.00 Dyspnea, unspecified (principal)
CPT/HCPCS: 71046

== ENCOUNTER → 2020-07-18 | Outpatient (CLI) | payer MEDICARE, MEDICAID ==
[~2020-07-18] MED LIST changes: +ALEN70TA77 PO; +AMIT50TA PO; +AZEL137S4 NAS; +AZEL6DRO2 OP; +BISA5TAB5 PO; +DONE10TA7 PO; +FLUT1BLS15 INH; +LEVO75TA5 PO; +LORA-247 PO; +MONT10TA6 PO; +NYST15CR TD; +ONDA4TAB13 SL; +SUCR1TAB PO; +ZIPR40CA3 PO; +calcium PO
[2020-07-18 10:01] LABS: ALANINE AMINOTRANSFERASE 21 U/L (12-78); ALBUMIN 3.2 g/dL (3.4-5.0); ANION GAP 6 mmol/L (5-15); CALCIUM 8.2 mg/dL (8.5-10.1); CHLORIDE 108 mmol/L (98-107); CREATININE 0.72 mg/dL (0.55-1.02)
[2020-07-18 10:03] LABS: ALKALINE PHOSPHATASE 149 U/L (45-117); BILIRUBIN,TOTAL 0.1 mg/dL (0.2-1.0); TOTAL PROTEIN 6.5 g/dL (6.4-8.2)
== END | disposition home or self-care (01) ==
LOC: STAR 08:47
PROVIDERS: ATTEND Internal Medicine Gastroenterology
DX: Z01.812 Encounter for preprocedural laboratory examination (principal); Z20.822 Contact with and (suspected) exposure to COVID-19; R10.13 Epigastric pain; R11.2 Nausea with vomiting, unspecified; R14.0 Abdominal distension (gaseous); R59.0 Localized enlarged lymph nodes; R74.8 Abnormal levels of other serum enzymes
CPT/HCPCS: 36415; 80053; 93005; U0003

== ENCOUNTER 2020-07-22 05:49 | Day surgery (SDC) | payer MEDICARE, MEDICAID ==
[~2020-07-22] VITALS: Ht 152.4 cm; Wt 61.3 kg
[~2020-07-22 05:49] MED LIST changes: -OXYC-380 PO; +OXYC-501 PO
[2020-07-22 07:24] VITALS: BP 116/66
[2020-07-22] MEDS ORDERED: ONDANSETRON 2MG/ML, 2ML IVPush PRN (07:30)
[2020-07-22] MEDS ORDERED: PROMETHAZINE 25 MG/ML, 1ML IVPush PRN (07:30)
[2020-07-22] MEDS ORDERED: HYDROmorphone 1 MG/ML, 1ML INJ IVPush PRN (07:30)
[2020-07-22] MEDS ORDERED: FENTANYL PF 100 MCG/2ML IV PRN (07:30)
[2020-07-22] MEDS ORDERED: hydrALAzine 20 MG/ML, 1ML IV PRN (07:30)
[2020-07-22] MEDS ORDERED: ACETAMINOPHEN 325 MG TABLET PO PRN (07:30)
[2020-07-22] MEDS ORDERED: OXYcodone 5 MG/5 ML ORAL.SOL UDC PO PRN (07:30)
[2020-07-22] MEDS ORDERED: CHLORHEXIDINE 15 ML UDC PO ONE (07:30)
[2020-07-22] MEDS ORDERED: LACTATED RINGERS 1,000 ML IV SCH (07:30)
[2020-07-22] MEDS ORDERED: LABETALOL 5MG/ML, 20ML IV PRN (07:30)
[2020-07-22] MEDS ORDERED: MIDAZOLAM 1 MG/ML, 2ML ONE (07:33)
[2020-07-22] MEDS ORDERED: PROPOFOL 10 MG/ML, 20ML ONE (07:34)
[2020-07-22] MEDS ORDERED: FENTANYL PF 100 MCG/2ML ONE (07:34)
[2020-07-22] MEDS ORDERED: TIZA4TAB2 PO (07:37)
[2020-07-22] MEDS ORDERED: HYDR1TAB53 PO (07:37)
[2020-07-22] MEDS ORDERED: GABAPENTIN PO (07:37)
[2020-07-22] MEDS ORDERED: EPHEDRINE 50 MG/ML, 1ML ONE (08:50)
[2020-10-26] MEDS ORDERED: MONT10TA17 PO (17:24)
[2020-10-26] MEDS ORDERED: OFLO5DRO7 EACHEYE (17:24)
[2020-10-26] MEDS ORDERED: NALO4SPR NAS (17:24)
[2020-10-26] MEDS ORDERED: ALEN70TA77 PO (17:24)
[2020-10-26] MEDS ORDERED: BISA10SU4 PR (17:24)
[2020-10-26] MEDS ORDERED: GABA600T7 PO (17:24)
[2020-10-26] MEDS ORDERED: LOTE2.8D EACHEYE (17:24)
[2020-10-26] MEDS ORDERED: FERR324T5 PO (17:24)
[2020-10-26] MEDS ORDERED: CALC-534 PO (17:24)
[2020-10-26] MEDS ORDERED: ASCO500T8 PO (17:24)
[2020-10-26] MEDS ORDERED: QUET100T2 PO (17:24)
[2020-10-26] MEDS ORDERED: DULO30CA2 PO (17:24)
[2020-10-26] MEDS ORDERED: CHOL10003 PO (17:24)
[2020-10-26] MEDS ORDERED: ASPI81TA45 PO (17:24)
[2020-10-26] MEDS ORDERED: PRED5DRO20 EACHEYE (17:24)
[2020-10-26] MEDS ORDERED: AMLO-211 PO (17:24)
[2020-11-30] MEDS ORDERED: BUSP30TA PO (10:48)
[2020-11-30] MEDS ORDERED: CALC-780 PO (10:48)
[2020-11-30] MEDS ORDERED: LORA-59 PO (10:48)
[2020-11-30] MEDS ORDERED: HYDR50TA99 PO (10:48)
[2020-11-30] MEDS ORDERED: ZIPR40CA3 PO (10:48)
[2020-12-06] MEDS ORDERED: LOSA25TA25 PO (11:01)
[2020-12-06] MEDS ORDERED: MORP-29 PO (11:01)
[2020-12-06] MEDS ORDERED: HYDR-2214 PO (11:07)
== END 2020-07-22 09:55 | disposition home or self-care (01) ==
LOC: OUT 05:49
PROVIDERS: ATTEND Internal Medicine Gastroenterology
DX: R11.2 Nausea with vomiting, unspecified (principal); E11.9 Type 2 diabetes mellitus without complications; I10 Essential (primary) hypertension; I25.2 Old myocardial infarction; J45.909 Unspecified asthma, uncomplicated; F12.10 Cannabis abuse, uncomplicated; Z87.891 Personal history of nicotine dependence; Z88.2 Allergy status to sulfonamides; Z88.8 Allergy status to other drugs, medicaments and biological substances; Z98.84 Bariatric surgery status
CPT/HCPCS: 43235; J2250; J2704; J3010; J7120

== ENCOUNTER 2020-08-02 10:16 | Emergency (ER) | payer MEDICARE, MEDICAID ==
[~2020-08-02] VITALS: Ht 147.3 cm; Wt 60.8 kg
[~2020-08-02 10:16] MED LIST changes: +GABAPENTIN PO; +OXYC-380 PO; -OXYC-501 PO; +TIZA4TAB2 PO
[2020-08-02] MEDS ORDERED: ONDANSETRON 2MG/ML, 2ML ONE (10:20)
[2020-08-02] MEDS ORDERED: NALOXONE 1 MG/ML, 2ML ONE (10:20)
[2020-08-02] MEDS ORDERED: NALOXONE 1 MG/ML, 2ML IVPush ONE (10:30)
[2020-08-02] MEDS ORDERED: SODIUM CHLORIDE FLUSH 10ML SYR IVF ONE (10:30)
[2020-08-02] MEDS ORDERED: SODIUM CHLORIDE 0.9% 1,000 ML IV ONE (10:30)
[2020-08-02] MEDS ORDERED: SODIUM CHLORIDE 0.9% 1,000ML IVBOLUS ONE (10:30)
[2020-08-02] MEDS ORDERED: ONDANSETRON 2MG/ML, 2ML IVPush ONE (10:30)
--- NOTE | 2020-08-02 10:44 | NUR ---
END TIDAL IN PLACE, ETCO2 35. PACED 60S. BP WNL, IVF PER JUN. PT PROTECTING AIRWAY, GCS 13, AWAKENS A BIT TO STIMULATION, EKG DONE, CXR PENDING, LABS PENDING, SAHM WAS IN ROOM, FALL PRECS.
[2020-08-02 10:53] LABS: BASOPHILS % (AUTO) 1 % (0-1); EOSINOPHILS % (AUTO) 1 % (1-7); LYMPHOCYTES % (AUTO) 16 % (22-44); MEAN CORPUSCULAR HEMOGLOBIN 24.1 pg (27.0-34.8); MEAN CORPUSCULAR HGB CONC 31.8 g/dL (32.4-35.8); MEAN PLATELET VOLUME 6.4 fL (7.4-10.4); MONOCYTES % (AUTO) 13 % (2-9); NEUTROPHILS % (AUTO) 69 % (42-75); PLATELET COUNT 235 x10^3/uL (130-400); RED BLOOD COUNT 3.96 x10^6/uL (3.82-5.3); RED CELL DISTRIBUTION WIDTH 17.6 % (9.6-15.2)
[2020-08-02 11:00] LABS: MD NO
[2020-08-02] MEDS ORDERED: PLEASE ENTER HEIGHT AND WEIGHT MC SCH (11:00)
[2020-08-02] MEDS ORDERED: PLEASE ENTER ALLERGIES MC SCH (11:00)
[2020-08-02 11:06] LABS: ALANINE AMINOTRANSFERASE 20 U/L (12-78); ALBUMIN 3.2 g/dL (3.4-5.0); ANION GAP 4 mmol/L (5-15); CHLORIDE 109 mmol/L (98-107); SALICYLATE LEVEL 2.7 mg/dL (2.8-20.0)
[2020-08-02 11:08] LABS: ALKALINE PHOSPHATASE 116 U/L (45-117); BILIRUBIN,TOTAL 0.2 mg/dL (0.2-1.0); CREATININE 0.77 mg/dL (0.55-1.02); TOTAL PROTEIN 6.3 g/dL (6.4-8.2)
--- NOTE | 2020-08-02 11:38 | NUR ---
TASK RN: PT SLEEPING IN NAD, AROUSABLE TO VERBAL COMMAND. VSS.
--- NOTE | 2020-08-02 12:09 | NUR ---
TASK NURSE. PT AMBULATED TO BATHROOM AND BACK. TOLERATED WELL. U/A OBTAINED. VSS. PT IN NO ACUTE DISTRESS.
--- NOTE | 2020-08-02 12:18 | NUR ---
ua sent, pt more arousable. as
[2020-08-02 12:37] LABS: MICROSCOPIC NOT IND
[2020-08-02 12:49] LABS: AMPHETAMINE SCREEN, URINE Negative (Negative); BARBITURATE SCREEN, URINE Negative (Negative); BENZODIAZEPINE SCREEN, URINE Negative (Negative); CANNABINOID SCREEN, URINE Positive (Negative); COCAINE SCREEN, URINE Negative (Negative); METHADONE SCREEN, URINE Negative (Negative); OPIATE SCREEN, URINE Positive (Negative)
[2020-08-02 14:06] VITALS: BP 110/71
== END 2020-08-02 14:10 | disposition home or self-care (01) ==
LOC: ED 11:04
DX: R55 Syncope and collapse (principal); T40.2X1A Poisoning by other opioids, accidental (unintentional), initial encounter; D53.9 Nutritional anemia, unspecified; K21.9 Gastro-esophageal reflux disease without esophagitis; I25.2 Old myocardial infarction; J44.9 Chronic obstructive pulmonary disease, unspecified; E03.9 Hypothyroidism, unspecified; Z87.891 Personal history of nicotine dependence; Y92.89 Other specified places as the place of occurrence of the external cause
CPT/HCPCS: 36415; 71045; 80053; 80299; 80307; 80320; 80329; 81003; 85025; 93005; 96361; 96374; 96375; 99285; J2310; J2405; J7030; G0480

== ENCOUNTER 2020-11-30 08:32 | Inpatient (IN) | payer MEDICARE, MEDICAID ==
[~2020-11-30] VITALS: Ht 152.4 cm; Wt 57.3 kg
[2020-12-06 06:27] VITALS: BP 124/70
== END 2020-12-06 13:18 | DRG 315 ==
LOC: ED 09:04 → SUATTDRO 13:30 → 4WST 15:10 → INTOOBSV 15:10 → OBSVTOIN 15:21
PROVIDERS: ADMIT Internal Medicine; ATTEND Hospitalist
DX: I95.89 Other hypotension (principal); E87.1 Hypo-osmolality and hyponatremia; E44.0 Moderate protein-calorie malnutrition; N17.9 Acute kidney failure, unspecified; M48.54XA Collapsed vertebra, not elsewhere classified, thoracic region, initial encounter for fracture; I50.22 Chronic systolic (congestive) heart failure; R65.10 Systemic inflammatory response syndrome (SIRS) of non-infectious origin without acute organ dysfunction; I45.81 Long QT syndrome; D72.829 Elevated white blood cell count, unspecified; K21.9 Gastro-esophageal reflux disease without esophagitis; I25.10 Atherosclerotic heart disease of native coronary artery without angina pectoris; I11.0 Hypertensive heart disease with heart failure; G89.29 Other chronic pain; F25.9 Schizoaffective disorder, unspecified; J44.9 Chronic obstructive pulmonary disease, unspecified; E87.8 Other disorders of electrolyte and fluid balance, not elsewhere classified; M51.34 Other intervertebral disc degeneration, thoracic region; E03.9 Hypothyroidism, unspecified; E78.5 Hyperlipidemia, unspecified; K86.9 Disease of pancreas, unspecified; F12.90 Cannabis use, unspecified, uncomplicated; F32.9 Major depressive disorder, single episode, unspecified; W18.39XA Other fall on same level, initial encounter; Z87.891 Personal history of nicotine dependence; Z79.82 Long term (current) use of aspirin; Z87.11 Personal history of peptic ulcer disease; I25.2 Old myocardial infarction; Y93.89 Activity, other specified; Y92.89 Other specified places as the place of occurrence of the external cause; Y99.8 Other external cause status